=== PATIENT | female | born 1930 | race Caucasian/White ===

== ENCOUNTER 2016-07-16 11:22 | Inpatient (IN) | payer MEDICARE, MEDICAID ==
--- NOTE | 2016-07-16 12:06 | ER Document Report ---
[id number] Information source: Patient, Emergency Med Personnel, Outside Facility Records TRAVEL OUTSIDE OF THE [place] IN LAST 30 DAYS: No - HPI Patient complains to provider of: Shortness of Breath Onset: Other - ~2 weeks ago Onset/Duration: Gradual, Persistent Associated symptoms: Nonproductive cough, Rhinnorhea, Shortness of breath Recently seen / treated by doctor: Yes - [facility] 07/16/2016 (today) <FABIO PIERRE - Last Filed: 08/02/16 21:56> - General Chief Complaint: Shortness Of Breath Stated Complaint: SHORTNESS OF BREATH Notes: Patient is an 86-year-old female sent over from [facility] where she was had a follow-up appointment for her shortness of breath that she has been experiencing for the past 2 weeks. Patient denies it being worse, but states that it is very persistent. Patient states that she has a cough and is also congested. Patient's primary care provider became worried when her O2 saturation dropped as low as 75% while in the doctor's office. EMS states that on arrival they read her O2 saturation at 80%. Patient has a history of COPD, heart attack, coronary artery disease, peripheral vascular disease, and a few other chronic illnesses. (FABIO PIERRE) - Related Data Allergies/Adverse Reactions: Penicillins Allergy (Unknown, Verified 04/12/12 11:10) Home Medications: Current Home Medications Sennosides/Docusate 8.6-50 mg [Senna Plus Tablet] 1 tab PO DAILYP PRN 07/16/16 [ History] Tiotropium Br/Olodaterol HCl [Stiolto Respimat Inhal [place]] 1 puff IH QPM [History] Past Medical History - General Information source: Patient, [facility] Records, Outside Facility Records - Social History Smoking Status: Former Smoker Cigarette use (# per day): No Chew tobacco use (# tins/day): No Frequency of alcohol use: None Drug Abuse: None Family History: Reviewed & Not Pertinent - Past Medical History Cardiac Medical History: Reports: Hx Coronary Artery Disease, Hx Heart Attack - 2010, Hx Hypertension, Hx Peripheral Vascular Disease Pulmonary Medical History: Reports: Hx COPD Renal/ Medical History: Reports: Hx Renal Insufficiency Musculoskeltal Medical History: Reports Hx Arthritis Past Surgical History: Reports: Hx Cardiac Catheterization, Hx Cardiac Surgery - 4 Vessel Bypass 2009, Hx Cholecystectomy. Denies: Hx Hysterectomy - Immunizations Hx Diphtheria, Pertussis, Tetanus Vaccination: Yes Hx Pneumococcal Vaccination: 06/27/08 <FABIO PIERRE - Last Filed: 08/02/16 21:56> Review of Systems - Review of Systems Constitutional: No symptoms reported EENT: See HPI, Nose congestion Cardiovascular: See HPI, Dyspnea Respiratory: See HPI, Cough, Short of breath, Wheezing Gastrointestinal: No symptoms reported Genitourinary: No symptoms reported Female Genitourinary: No symptoms reported Musculoskeletal: No symptoms reported Skin: No symptoms reported Hematologic/Lymphatic: No symptoms reported Neurological/Psychological: No symptoms reported -: Yes All other systems reviewed and negative <FABIO PIERRE - Last Filed: 08/02/16 21:56> Physical Exam - Vital signs Interpretation: Hypoxic - General General appearance: Alert, Other - Cachectic - HEENT Head: Normocephalic, Atraumatic Eyes: Normal Pupils: PERRL - Respiratory Breath sounds: Nonproductive cough, Rhonchi, Wheezing - Cardiovascular Rhythm: Regular Heart sounds: Normal auscultation Murmur: Yes - Abdominal Inspection: Normal Distension: No distension Bowel sounds: Normal Tenderness: Nontender - Back Back: Normal, Nontender - Extremities General upper extremity: Normal inspection, Nontender, Normal color, Normal temperature. No: Edema General lower extremity: Nontender, Normal color. No: Edema, Normal temperature - Cool to touch consistent with peripheral vascular disease. - Neurological Neuro grossly intact: Yes Cognition: Normal Orientation: AAOx4 [place] Coma Scale Eye Opening: Spontaneous [place] Coma Scale Verbal: Oriented [place] Coma Scale Motor: Obeys Commands [place] Coma Scale Total: 15 Speech: Normal - Psychological Associated symptoms: Normal affect, Normal mood - Skin Skin Moisture: Dry Skin Color: Normal <FABIO PIERRE - Last Filed: 08/02/16 21:56> - Vital signs Vitals: Temp 97.7 F 07/16/16 11:45 Course - Laboratory Result Diagrams: 07/16/16 12:05 07/16/16 12:05 - Diagnostic Test Radiology reviewed: Image reviewed - Bibasilar infiltrates, COPD - EKG Interpretation by [place] EKG shows normal: Sinus rhythm, [place], Intervals, QRS Complexes, ST-T Waves Rate: Normal - 67 Rhythm: NSR [place]/QRS: LAHB/LAFB Voltage: Consistant with LVH P Waves: LAE - Consults Dr. Chavez Time consulted: 13:55 Consulted provider: will come to ER <ARMANI GARCIA - Last Filed: 07/16/16 15:22> - Laboratory Result Diagrams: 07/25/16 15:01 07/25/16 15:01 <FABIO PIERRE - Last Filed: 08/02/16 21:56> - Vital Signs Vital signs: Temp Pulse Resp BP Pulse Ox 98.2 F 134 H 20 127/71 H 100 07/27/16 19:18 07/27/16 19:18 07/27/16 19:18 07/27/16 19:18 07/27/16 19:18 - Laboratory Laboratory results interpreted by me: 07/16/16 07/16/16 07/16/16 12:05 12:05 13:35 RBC 3.58 L Hgb 11.0 L Hct 35.4 L MCV 99 H MCHC 31.1 L RDW 14.1 H Seg Neutrophils % 82.5 H Lymphocytes % 7.6 L Sodium 146.7 H BUN 46 H Creatinine 2.22 H Est GFR ( Amer) 25 L Est GFR (Non-Af Amer) 21 L ALT 8 L Creatine Kinase 22 L Albumin 3.3 L Urine Protein >=500 H Urine Blood SMALL H Discharge - Discharge Admitting Provider: Hospitalist Unit Admitted: IMCU <ARMANI GARCIA - Last Filed: 07/16/16 15:22> <FABIO PIERRE - Last Filed: 08/02/16 21:56> - Discharge Clinical Impression: COPD with exacerbation Pneumonia Qualifiers: Pneumonia type: due to methicillin-sensitive Staphylococcus aureus (MSSA) Laterality: bilateral Lung location: lower lobe of lung Qualified Code(s): J15.211 - Pneumonia due to Methicillin susceptible Staphylococcus aureus Scribe Attestation: 07/16/16 15:22 I personally performed the services described in the documentation, reviewed and edited the documentation which was dictated to the scribe in my presence, and it accurately records my words and actions. (ARMANI GARCIA) Scribe Documentation - Scribe Written by Scribe:: Fabio Pierre 07/16/2016 12:02 acting as scribe for :: Emily <FABIO PIERRE - Last Filed: 08/02/16 21:56>
[2016-07-16] MEDS ORDERED: METHYLPREDNISOLONE INJ 125 MG/2 ML SDV IV ONE (12:10)
[2016-07-16] MEDS ORDERED: IPRATROPIUM/ALBUTEROL 0.5-2.5 MG/3 ML AMPUL NEB ONE (12:10)
[2016-07-16 12:35] LABS: ABSOLUTE LYMPHOCYTES (AUTO) 0.7 10^3/uL (0.5-4.7); RED CELL DISTRIBUTION WIDTH 14.1 % (11.5-14.0)
[2016-07-16] MEDS ORDERED: ALBUTEROL SULFATE 0.083% NEB 2.5 MG/3 ML AMPUL NEB ONE (12:41)
[2016-07-16 12:47] LABS: ABSOLUTE MONOCYTES (AUTO) 0.8 10^3/uL (0.1-1.4); ABSOLUTE NEUT (AUTO) 7.5 10^3/uL (1.7-8.2); BASOPHILS % (AUTO) 0.5 % (0-2); EOSINOPHILS % (AUTO) 0.5 % (0-6); HEMATOCRIT 35.4 % (36.0-47.0); HGB HCT DIFFERENCE -2.4; LYMPHOCYTES % (AUTO) 7.6 % (13-45); MEAN CORPUSCULAR HEMOGLOBIN 30.7 pg (27.0-33.4); MEAN CORPUSCULAR HGB CONC 31.1 g/dL (32.0-36.0); MEAN CORPUSCULAR VOLUME 99 fl (80-97); MONOCYTES % (AUTO) 8.9 % (3-13); RED BLOOD COUNT 3.58 10^6/uL (3.72-5.28); SEGMENTED NEUTROPHILS % (AUTO) 82.5 % (42-78); WHITE BLOOD COUNT 9.1 10^3/uL (4.0-10.5)
[2016-07-16 12:55] LABS: ALANINE AMINOTRANSFERASE 8 U/L (9-52); ALBUMIN 3.3 g/dL (3.5-5.0); ALKALINE PHOSPHATASE 112 U/L (38-126); ANION GAP 13 (5-19); ASPARTATE AMINO TRANSFERASE 22 U/L (14-36); BILIRUBIN,TOTAL 0.7 mg/dL (0.2-1.3); BLOOD UREA NITROGEN 46 mg/dL (7-20); CALCIUM 9.7 mg/dL (8.4-10.2); CARBON DIOXIDE 27 mmol/L (22-30); CHLORIDE 107 mmol/L (98-107); CREATINE KINASE 22 U/L (30-135); CREATININE RESULT 2.22 mg/dL (0.52-1.25); GLUCOSE 85 mg/dL (75-110); SODIUM 146.7 mmol/L (137-145); TOTAL PROTEIN 7.9 g/dL (6.3-8.2)
--- NOTE | 2016-07-16 12:58 | EKG REPORT ---
SEVERITY:- ABNORMAL ECG - SINUS RHYTHM PROBABLE LEFT ATRIAL ABNORMALITY LEFT ANTERIOR FASCICULAR BLOCK LVH WITH SECONDARY REPOLARIZATION ABNORMALITY : Confirmed by: Cm Brown MD 16-Jul-2016 12:57:33
[2016-07-16 13:05] LABS: CREATINE KINASE MB 1.41 ng/mL (<4.55)
[2016-07-16 13:15] LABS: TROPONIN I 0.07 ng/mL
[2016-07-16] MEDS ORDERED: CEFTRIAXONE INJ 1000 MG VIAL IM ONE (14:01)
[2016-07-16] MEDS ORDERED: AZITHROMYCIN INJ 500 MG VIAL IV ONE (14:03)
[2016-07-16 14:08] LABS: APPEARANCE,URINE SLIGHTLY-CLOUDY; BILIRUBIN,URINE NEGATIVE (NEGATIVE); GLUCOSE, URINE NEGATIVE (NEGATIVE); KETONES,URINE NEGATIVE (NEGATIVE); LEUKOCYTE ESTERASE,URINE NEGATIVE (NEGATIVE); NITRITE,URINE NEGATIVE (NEGATIVE); PROTEIN,URINE >=500 mg/dL (NEGATIVE); URINE SPECIFIC GRAVITY 1.014; UROBILINOGEN,URINE NEGATIVE mg/dL (<2.0)
[2016-07-16] MEDS ORDERED: CEFTRIAXONE 1 GM/D5W RTU 50 ML IV ONE (14:13)
[2016-07-16] MEDS ORDERED: NORMAL SALINE 1000 ML 1,000 ML IV PRN (15:30)
[2016-07-16] MEDS ORDERED: ACETAMINOPHEN 325 MG TABLET PO PRN (15:30)
[2016-07-16] MEDS ORDERED: LEVALBUTEROL HCL NEB 1.25 MG/3 ML AMPUL NEB PRN (15:30)
[2016-07-16] MEDS ORDERED: PHARMACY COMMUNICATION ORDER MC NR (15:45)
[2016-07-16] MEDS ORDERED: METOPROLOL SUCCINATE 50 MG TAB.SR.24H PO ONE (16:04)
[2016-07-16] MEDS ORDERED: LISINOPRIL 10 MG TABLET PO ONE (16:05)
[2016-07-16] MEDS ORDERED: ISOSORBIDE MONONITRATE 60 MG TAB.ER.24H PO ONE (17:00)
[2016-07-16] MEDS: IPRATROPIUM/ALBUTEROL 0.5-2.5 MG/3 ML AMPUL NEB SCH ×2 (17:08→20:05)
[2016-07-16] MEDS ORDERED: ALBUTEROL SULFATE HFA (90 MCG/PUFF) 8 GM MDI (1 MDI/ER DISP) IH PRN (18:05)
[2016-07-16] MEDS ORDERED: SENNOSIDES/DOCUSATE 8.6-50 MG 1 EACH TABLET PO PRN ×2 (18:05→18:12)
[2016-07-16] MEDS ORDERED: (PENDING PHARMACY ID) (Tiotropium Br/Olodaterol Hcl [Stiolto Respimat Inhal Spray] 1 PUFF) IH SCH (18:15)
--- NOTE | 2016-07-16 18:32 | PDOC H&P ---
History of Present Illness Admission Date/PCP: 07/16/16 14:25 MIRELLA WOO History of Present Illness: VIKTORIA LEE is a 86 year old female who presents from her doctor's office at [facility] where she was had a follow-up appointment for her shortness of breath that she has been experiencing for the past 2 weeks. Patient denies it being worse, but states that it is very persistent. Patient states that she has a cough and is also congested. Patient's primary care provider became worried when her O2 saturation dropped as low as 75% while in the doctor's office. EMS states that on arrival they read her O2 saturation at 80%. Patient reports purulent sputum but denies hemoptysis. She denies fevers admits to occasional chills and feeling cold. She denies any peripheral edema worsening dyspnea on exertion, or PND or orthopnea. She is referred to the hospital service for COPD exacerbation/pneumonia. Past Medical History Cardiac Medical History: Reports: Coronary Artery Disease, Myocardial Infarction - 2010, Hypertension, Peripheral Vascular Disease Pulmonary Medical History: Reports: Chronic Obstructive Pulmonary Disease (COPD) Denies: Asthma, Bronchitis, Pneumonia Musculoskeltal Medical History: Reports: Arthritis Hematology: Reports: Anemia Past Surgical History Past Surgical History: Reports: Cardiac Catheterization, Cholecystectomy, Coronary Artery Bypass Graft, Hysterectomy Social History Smoking Status: Never Smoker Frequency of Alcohol Use: None Hx Recreational Drug Use: No Hx Prescription Drug Abuse: No - Advance Directive Resuscitation Status: Do Not Resuscitate Surrogate healthcare decision maker:: Valentino Lee Family History Family History: CAD, Hypertension, Other - Kidney problems Parental Family History Reviewed: Yes Children Family History Reviewed: Yes Sibling(s) Family History Reviewed.: Yes Medication/Allergy Home Medications: Albuterol Sulfate [Proair HFA] 1 puff IH Q6HP PRN 07/16/16 Aspirin [Aspirin 81 mg Chewable Tablet] 81 mg PO DAILY 07/16/16 Cholecalciferol (Vitamin D3) [Vitamin D3 2000 unit Tablet] 2,000 units PO DAILY 07/16/16 Clonidine [Catapres-Tts 1 (0.1 mg/24 Hr) Transderm Patch] 1 patch TD PARK Ferrous Sulfate [Iron] 325 mg PO Q12 07/16/16 Hydrocodone/Acetaminophen [[place] 10-325 mg Tablet] 1 tab PO Q6HP PRN 07/16/16 Isosorbide Mononitrate [Imdur 60 mg Tablet.er] 60 mg PO DAILY 07/16/16 Lisinopril [Prinivil 40 mg Tablet] 40 mg PO DAILY 07/16/16 Metoprolol Succinate [Toprol Xl 50 mg Tab.sr] 50 mg PO DAILY 07/16/16 Mirtazapine [Remeron 15 mg Tablet] 15 mg PO QHS 07/16/16 Nitroglycerin [Nitrostat 0.4 mg (1/150 Gr) Tabs 25/Bottle] 0.4 mg SL Q5MP PRN Omeprazole 20 mg PO DAILY 07/16/16 Sennosides/Docusate 8.6-50 mg [Senna Plus Tablet] 1 tab PO DAILYP PRN 07/16/16 Tiotropium Br/Olodaterol HCl [Stiolto Respimat Inhal [place]] 1 puff IH QPM Allergies/Adverse Reactions: Penicillins Allergy (Unknown, Verified 04/12/12 11:10) Review of Systems Constitutional: PRESENT: fatigue, weakness. ABSENT: anorexia, chills, fever(s) , headache(s), weight gain, weight loss Eyes: ABSENT: visual disturbances Ears: ABSENT: hearing changes Nose, Mouth, and Throat: ABSENT: sore throat Cardiovascular: PRESENT: dyspnea on exertion. ABSENT: chest pain, edema, orthropnea, palpitations Respiratory: PRESENT: cough, dyspnea, sputum. ABSENT: hemoptysis Gastrointestinal: ABSENT: abdominal pain, constipation, diarrhea, hematemesis, hematochezia, melena, nausea, vomiting Genitourinary: ABSENT: dysuria, hematuria Musculoskeletal: ABSENT: joint swelling Integumentary: ABSENT: rash, wounds Neurological: ABSENT: abnormal gait, abnormal speech, confusion, dizziness, focal weakness, syncope Psychiatric: ABSENT: anxiety, depression, homidical ideation, suicidal ideation Endocrine: ABSENT: cold intolerance, heat intolerance, polydipsia, polyuria Hematologic/Lymphatic: ABSENT: easy bleeding, easy bruising Physical Exam Vital Signs: Temp Pulse Resp BP Pulse Ox 97.7 F 20 193/61 H 100 07/16/16 11:45 07/16/16 14:01 07/16/16 14:01 07/16/16 14:01 General appearance: PRESENT: mild distress, thin, other - Cachectic Head exam: PRESENT: atraumatic, normocephalic, other - Temporal muscle wasting Eye exam: PRESENT: conjunctiva pink, EOMI, PERRLA. ABSENT: conjunctival injection, scleral icterus Ear exam: PRESENT: normal external ear exam Mouth exam: PRESENT: dry mucosa, tongue midline Neck exam: PRESENT: thyromegaly - Slight fullness. ABSENT: carotid bruit, JVD, lymphadenopathy, tracheal deviation Respiratory exam: PRESENT: accessory muscle use, prolonged expiratory phas, rhonchi - Bilateral, tachypnea, wheezes - Bilateral scattered. ABSENT: chest wall tenderness, crackles, rales, stridor Cardiovascular exam: PRESENT: irregular rhythm, +S1, +S2, systolic murmur - 3/6 sm. ABSENT: diastolic murmur, rubs Pulses: PRESENT: normal dorsalis pedis pul Vascular exam: PRESENT: normal capillary refill GI/Abdominal exam: PRESENT: normal bowel sounds, soft. ABSENT: distended, guarding, mass, organolmegaly, rebound, tenderness Rectal exam: PRESENT: deferred Extremities exam: ABSENT: calf tenderness, clubbing, pedal edema Neurological exam: PRESENT: alert, awake, oriented to person, oriented to place , oriented to situation, CN II-XII grossly intact. ABSENT: motor sensory deficit Psychiatric exam: PRESENT: appropriate affect, normal mood. ABSENT: homicidal ideation, suicidal ideation Skin exam: PRESENT: dry, intact, warm. ABSENT: cyanosis, rash Results Impressions: Chest X-Ray 07/16/16 12:02 IMPRESSION: Findings most consistent with mild congestive failure. Underlying pneumonia cannot be excluded. Assessment & Plan - Diagnosis (1) COPD with exacerbation Is this a current diagnosis for this admission?: YesPlan: Patient has received magnesium. She is also received Solu-Medrol. Continue steroids and scheduled the posttreatments (2) Pneumonia Qualifiers: Pneumonia type: due to unspecified organism Laterality: bilateral Lung location: lower lobe of lung Qualified Code(s): J18.9 - Pneumonia, unspecified organism Is this a current diagnosis for this admission?: YesPlan: Patient has history of bronchiectasis. Begin patient on cefepime and Levaquin. Start scheduled nebulized treatments and aggressive pulmonary toileting. Sputum has been obtained in the emergency department. Blood cultures have also been obtained. (3) Acute hypoxemic respiratory failure Is this a current diagnosis for this admission?: YesPlan: Continue oxygen to maintain set greater than 94. (4) Coronary artery disease Qualifiers: Coronary Disease-Associated Artery/Lesion type: unspecified vessel or lesion type [place] vs. transplanted heart: [place] heart Associated angina: without angina Qualified Code(s): I25.10 - Atherosclerotic heart disease of [place] coronary artery without angina pectoris Is this a current diagnosis for this admission?: YesPlan: Patient has had previous CABG. Continue her home medications. (5) CKD (chronic kidney disease) Qualifiers: Chronic kidney disease stage: unspecified stage Qualified Code(s): N18.9 - Chronic kidney disease, unspecified Is this a current diagnosis for this admission?: YesPlan: Renally adjust medications and adjust for weight (6) Peripheral artery disease Is this a current diagnosis for this admission?: Yes (7) Congestive heart failure Qualifiers: Congestive heart failure type: unspecified congestive heart failure type Congestive heart failure chronicity: chronic Qualified Code(s): I50.9 - Heart failure, unspecified Is this a current diagnosis for this admission?: YesPlan: Patient does not appear volume overloaded. More favors pneumonia. (8) DNR (do not resuscitate) Is this a current diagnosis for this admission?: Yes (9) Cachexia Is this a current diagnosis for this admission?: YesPlan: Patient is quite frail and will consult dietary. Will also provide patient with ensure. Consider appetites stimulant - Time Time Spent: 50 to 70 Minutes Medications reviewed and adjusted accordingly: Yes
[2016-07-16] MEDS ORDERED: ALBUTEROL SULFATE HFA (90 MCG/PUFF) 200 PUFF/8.5 GM MDI IH PRN (18:37)
[2016-07-16] MEDS ORDERED: CEFEPIME 2 GM/D5W RTU 50 ML IV SCH (22:00)
[2016-07-16] MEDS: METHYLPREDNISOLONE INJ 40 MG/1 ML SDV IV SCH (23:28)
[2016-07-16] MEDS: HYDRALAZINE HCL 50 MG TABLET PO SCH (23:28)
[2016-07-16] MEDS: MIRTAZAPINE 15 MG TABLET PO SCH (23:29)
[2016-07-16] MEDS: GUAIFENESIN 600 MG TABLET.SA PO SCH (23:29)
[2016-07-16] MEDS: FAMOTIDINE 20 MG TABLET PO SCH (23:30)
[2016-07-16] MEDS: FERROUS SULFATE 325 MG TABLET PO SCH (23:30)
[2016-07-17] MEDS ORDERED: CEFEPIME 2 GM/D5W RTU 2 GM/50 ML RTUPB IV ONE (00:48)
[2016-07-17] MEDS ORDERED: INFLUENZA ADLT QUAD (36MOS+) 2016-17 VAC 0.5 ML SYR IM PRN (03:53)
[2016-07-17 04:58] LABS: HEMATOCRIT 30.8 % (36.0-47.0); HEMOGLOBIN 9.4 g/dL (12.0-15.5); HGB HCT DIFFERENCE -2.6; MEAN CORPUSCULAR HEMOGLOBIN 30.7 pg (27.0-33.4); MEAN CORPUSCULAR HGB CONC 30.5 g/dL (32.0-36.0); MEAN CORPUSCULAR VOLUME 100 fl (80-97); RED BLOOD COUNT 3.07 10^6/uL (3.72-5.28); RED CELL DISTRIBUTION WIDTH 14.4 % (11.5-14.0); WHITE BLOOD COUNT 4.8 10^3/uL (4.0-10.5)
[2016-07-17 05:12] LABS: ANION GAP 11 (5-19); BLOOD UREA NITROGEN 46 mg/dL (7-20); CALCIUM 9.5 mg/dL (8.4-10.2); CARBON DIOXIDE 26 mmol/L (22-30); CHLORIDE 108 mmol/L (98-107); CREATININE RESULT 2.08 mg/dL (0.52-1.25); GLUCOSE 151 mg/dL (75-110); MAGNESIUM 1.9 mg/dL (1.6-2.3); POTASSIUM 5.6 mmol/L (3.6-5.0); SODIUM 144.9 mmol/L (137-145)
[2016-07-17 05:21] LABS: BASOPHILS % (MANUAL) 0 % (0-2); EOSINOPHILS % (MANUAL) 0 % (0-6); LYMPHOCYTES % (MANUAL) 3 % (13-45); TOTAL CELLS COUNTED 100; TOXIC GRANULATION SLIGHT
[2016-07-17 05:22] LABS: ANISOCYTOSIS SLIGHT
[2016-07-17] MEDS: METHYLPREDNISOLONE INJ 40 MG/1 ML SDV IV SCH ×3 (07:01→22:56)
[2016-07-17] MEDS ORDERED: BISACODYL 10 MG SUPP.RECT PR PRN (07:31)
[2016-07-17] MEDS: LANSOPRAZOLE 15 MG TAB.RAP.DR PO SCH (07:40)
[2016-07-17] MEDS: IPRATROPIUM/ALBUTEROL 0.5-2.5 MG/3 ML AMPUL NEB SCH ×4 (08:07→20:16)
[2016-07-17] MEDS: DEXTROSE IV SCH (09:13)
[2016-07-17] MEDS: LEVOFLOXACIN IV SCH (09:13)
[2016-07-17] MEDS: CHOLECALCIFEROL (D3) 1,000 UNIT TABLET PO SCH (09:14)
[2016-07-17] MEDS: ASPIRIN 81 MG TABLET, CHEWABLE PO SCH (09:14)
[2016-07-17] MEDS: FERROUS SULFATE 325 MG TABLET PO SCH ×2 (09:14→22:56)
[2016-07-17] MEDS: GUAIFENESIN 600 MG TABLET.SA PO SCH ×2 (09:15→22:55)
[2016-07-17] MEDS: ISOSORBIDE MONONITRATE 60 MG TAB.ER.24H PO SCH (09:15)
[2016-07-17] MEDS: METOPROLOL SUCCINATE 50 MG TAB.SR.24H PO SCH (09:15)
[2016-07-17] MEDS: FAMOTIDINE 20 MG TABLET PO SCH ×2 (09:16→22:55)
[2016-07-17] MEDS: DOCUSATE SODIUM 100 MG CAPSULE PO SCH (09:16)
[2016-07-17] MEDS: HYDRALAZINE HCL 50 MG TABLET PO SCH ×2 (09:16→22:58)
[2016-07-17] MEDS: LISINOPRIL 10 MG TABLET PO SCH (09:17)
[2016-07-17] MEDS ORDERED: (PENDING PHARMACY ID) (Cholecalciferol (Vitamin D3) [Vitamin D3 2000 Unit Tablet] 2,000 UN PO SCH (10:00)
[2016-07-17] MEDS: CEFEPIME HCL 2 GM in DEXTROSE 5%-WATER 50 ML IV SCH ×2 (10:36→22:55)
--- NOTE | 2016-07-17 13:35 | PDOC PROGRESS REPORT ---
Subjective Progress Note for:: 07/17/16 Subjective:: Patient reports she feels she is breathing slightly better. She appears to be quite frail. Patient denies chest pain, abdominal pain, nausea, vomiting, fevers , chills, diarrhea, constipation, headache. Physical Exam Vital Signs: Temp Pulse Resp BP Pulse Ox 97.5 F 74 16 122/58 L 97 07/17/16 03:21 07/17/16 06:33 07/17/16 03:21 07/17/16 03:21 07/17/16 03:21 Intake & Output 07/16/16 07/17/16 07/18/16 06:59 06:59 06:59 Intake Total 10 Balance 10 Weight 28.9 kg Exam: General: Cachectic, frail, elderly Awake alert and answers questions appropriately, no acute respiratory distress HEENT: AT/NC, PERRL, oropharynx is moist, pink, no scleral icterus, no conjunctival injection Neck: No JVD, trachea midline Chest: Bilateral rhonchi, no wheezes CV: Irregular rate and rhythm, normal S1 and S2, no rub or gallop Abdomen: Soft, nontender to palpation, nondistended, active bowel sounds; no rebound, rigidity, or guarding Extremities: No cyanosis, clubbing or edema Neuro: Cranial nerves II through XII are grossly intact without focal deficits Psych: Normal mood and affect Results Laboratory Results: 07/17/16 04:30 07/17/16 04:30 07/17/16 07/17/16 04:30 04:30 WBC 4.8 RBC 3.07 L Hgb 9.4 L Hct 30.8 L MCV 100 H MCH 30.7 MCHC 30.5 L RDW 14.4 H Plt Count 198 Seg Neutrophils % Not Reportable Lymphocytes % Not Reportable Monocytes % Not Reportable Eosinophils % Not Reportable Basophils % Not Reportable Absolute Neutrophils Not Reportable Absolute Lymphocytes Not Reportable Absolute Monocytes Not Reportable Absolute Eosinophils Not Reportable Absolute Basophils Not Reportable Sodium 144.9 Potassium 5.6 H Chloride 108 H Carbon Dioxide 26 Anion Gap 11 BUN 46 H Creatinine 2.08 H Est GFR ( Amer) 27 L Est GFR (Non-Af Amer) 23 L Glucose 151 H Calcium 9.5 Magnesium 1.9 Impressions: Chest X-Ray 07/16/16 12:02 IMPRESSION: Findings most consistent with mild congestive failure. Underlying pneumonia cannot be excluded. Assessment & Plan - Diagnosis (1) COPD with exacerbation Is this a current diagnosis for this admission?: YesPlan: Continue steroids and scheduled nebulized treatments (2) Pneumonia Qualifiers: Pneumonia type: due to unspecified organism Laterality: bilateral Lung location: lower lobe of lung Qualified Code(s): J18.9 - Pneumonia, unspecified organism Is this a current diagnosis for this admission?: YesPlan: Patient has history of bronchiectasis. On cefepime day #2 and Levaquin day #2. Scheduled nebulized treatments and aggressive pulmonary toileting. Blood and sputum pending. (3) Acute hypoxemic respiratory failure Is this a current diagnosis for this admission?: YesPlan: Continue oxygen to maintain set greater than 94. (4) Coronary artery disease Qualifiers: Coronary Disease-Associated Artery/Lesion type: unspecified vessel or lesion type [place] vs. transplanted heart: [place] heart Associated angina: without angina Qualified Code(s): I25.10 - Atherosclerotic heart disease of [place] coronary artery without angina pectoris Is this a current diagnosis for this admission?: Yes (5) CKD (chronic kidney disease) Qualifiers: Chronic kidney disease stage: unspecified stage Qualified Code(s): N18.9 - Chronic kidney disease, unspecified Is this a current diagnosis for this admission?: Yes (6) Peripheral artery disease Is this a current diagnosis for this admission?: Yes (7) Congestive heart failure Qualifiers: Congestive heart failure type: unspecified congestive heart failure type Congestive heart failure chronicity: chronic Qualified Code(s): I50.9 - Heart failure, unspecified Is this a current diagnosis for this admission?: Yes (8) DNR (do not resuscitate) Is this a current diagnosis for this admission?: Yes (9) Cachexia Is this a current diagnosis for this admission?: YesPlan: Patient is quite frail and will consult dietary. Patient receiving ensure and ice cream as desired. Add Megace - Time Time Spent with patient: 25-34 minutes Medications reviewed and adjusted accordingly: Yes
[2016-07-17] MEDS ORDERED: (PENDING PHARMACY ID) (Tiotropium Br/Olodaterol Hcl [Stiolto Respimat Inhal Spray] 1 PUFF) IH SCH (18:00)
[2016-07-17] MEDS: MIRTAZAPINE 15 MG TABLET PO SCH (22:55)
[2016-07-18 05:08] LABS: HEMATOCRIT 32.2 % (36.0-47.0); HEMOGLOBIN 10.1 g/dL (12.0-15.5); HGB HCT DIFFERENCE -1.9; MEAN CORPUSCULAR HGB CONC 31.3 g/dL (32.0-36.0); MEAN CORPUSCULAR VOLUME 99 fl (80-97); RED BLOOD COUNT 3.25 10^6/uL (3.72-5.28); RED CELL DISTRIBUTION WIDTH 14.3 % (11.5-14.0)
[2016-07-18] MEDS: METHYLPREDNISOLONE INJ 40 MG/1 ML SDV IV SCH (05:13)
[2016-07-18 05:28] LABS: ANION GAP 14 (5-19); BLOOD UREA NITROGEN 61 mg/dL (7-20); CALCIUM 9.8 mg/dL (8.4-10.2); CARBON DIOXIDE 22 mmol/L (22-30); CHLORIDE 107 mmol/L (98-107); CREATININE RESULT 2.14 mg/dL (0.52-1.25); GLUCOSE 100 mg/dL (75-110); POTASSIUM 5.5 mmol/L (3.6-5.0); SODIUM 143.2 mmol/L (137-145)
[2016-07-18 05:34] LABS: WHITE BLOOD COUNT 12.5 10^3/uL (4.0-10.5)
[2016-07-18 05:39] LABS: BASOPHILS % (MANUAL) 0 % (0-2); EOSINOPHILS % (MANUAL) 0 % (0-6); LYMPHOCYTES % (MANUAL) 2 % (13-45); TOTAL CELLS COUNTED 100
[2016-07-18 05:40] LABS: ANISOCYTOSIS SLIGHT; TOXIC GRANULATION 1+
[2016-07-18] MEDS: LANSOPRAZOLE 15 MG TAB.RAP.DR PO SCH (07:45)
[2016-07-18] MEDS: IPRATROPIUM/ALBUTEROL 0.5-2.5 MG/3 ML AMPUL NEB SCH ×4 (08:19→20:14)
[2016-07-18] MEDS: MEGESTROL ACETATE SUSP 400 MG/10 ML UDCUP PO SCH (09:33)
[2016-07-18] MEDS: FERROUS SULFATE 325 MG TABLET PO SCH ×2 (09:34→22:01)
[2016-07-18] MEDS: DOCUSATE SODIUM 100 MG CAPSULE PO SCH (09:34)
[2016-07-18] MEDS: GUAIFENESIN 600 MG TABLET.SA PO SCH ×2 (09:34→22:01)
[2016-07-18] MEDS: CHOLECALCIFEROL (D3) 1,000 UNIT TABLET PO SCH (09:34)
[2016-07-18] MEDS: ASPIRIN 81 MG TABLET, CHEWABLE PO SCH (09:34)
[2016-07-18] MEDS: FAMOTIDINE 20 MG TABLET PO SCH ×2 (09:34→22:01)
[2016-07-18] MEDS: METOPROLOL SUCCINATE 50 MG TAB.SR.24H PO SCH (09:35)
[2016-07-18] MEDS: DEXTROSE IV SCH (09:39)
[2016-07-18] MEDS: CEFEPIME HCL 2 GM in DEXTROSE 5%-WATER 50 ML IV SCH (09:39)
[2016-07-18] MEDS: LEVOFLOXACIN IV SCH (09:39)
[2016-07-18] MEDS: HYDRALAZINE HCL 50 MG TABLET PO SCH ×2 (09:40→22:00)
[2016-07-18] MEDS: LISINOPRIL 10 MG TABLET PO SCH (09:40)
[2016-07-18] MEDS: ISOSORBIDE MONONITRATE 60 MG TAB.ER.24H PO SCH (09:40)
[2016-07-18] MEDS ORDERED: CLONIDINE 0.1 MG/24 HR PATCH.TDWK TD SCH ×3 (10:00→18:05)
--- NOTE | 2016-07-18 16:52 | PDOC PROGRESS REPORT ---
Subjective Progress Note for:: 07/18/16 Subjective:: Patient had overnight episode Of confusion. She is resting comfortably today. She sleeps with her head on her chest according to her son. Physical Exam Vital Signs: Temp Pulse Resp BP Pulse Ox 97.3 F 76 20 141/75 H 99 07/18/16 04:00 07/18/16 06:37 07/18/16 04:00 07/18/16 04:00 07/18/16 04:00 Intake & Output 07/17/16 07/18/16 07/19/16 06:59 06:59 06:59 Intake Total 90 867 Output Total 550 Balance 90 317 Weight 28.9 kg 34 kg Exam: General: Cachectic, frail, elderly sleeping with head on chest, no acute respiratory distress HEENT: AT/NC, PERRL, oropharynx is moist, pink, no scleral icterus, no conjunctival injection Neck: No JVD, trachea midline Chest: Clear to auscultation bilaterally CV: Irregular rate and rhythm, normal S1 and S2, no rub or gallop Abdomen: Soft, nontender to palpation, nondistended, active bowel sounds; no rebound, rigidity, or guarding Extremities: No cyanosis, clubbing or edema Results Laboratory Results: 07/18/16 04:45 07/18/16 04:45 07/17/16 07/17/16 07/18/16 04:30 04:30 04:45 WBC 12.5 H D RBC 3.25 L Hgb 10.1 L Hct 32.2 L MCV 99 H MCH 31.0 MCHC 31.3 L RDW 14.3 H Plt Count 200 Seg Neutrophils % Not Reportable Lymphocytes % Not Reportable Monocytes % Not Reportable Eosinophils % Not Reportable Basophils % Not Reportable Absolute Neutrophils Not Reportable Absolute Lymphocytes Not Reportable Absolute Monocytes Not Reportable Absolute Eosinophils Not Reportable Absolute Basophils Not Reportable Retic Count (auto) 1.28 Absolute Retic 0.039 Sodium Potassium Chloride Carbon Dioxide Anion Gap BUN Creatinine Est GFR ( Amer) Est GFR (Non-Af Amer) Glucose Calcium Iron 20 L TIBC 177 L % Saturation 11 Ferritin 312.00 H Vitamin B12 703.0 Folate 11.80 07/18/16 04:45 WBC RBC Hgb Hct MCV MCH MCHC RDW Plt Count Seg Neutrophils % Lymphocytes % Monocytes % Eosinophils % Basophils % Absolute Neutrophils Absolute Lymphocytes Absolute Monocytes Absolute Eosinophils Absolute Basophils Retic Count (auto) Absolute Retic Sodium 143.2 Potassium 5.5 H Chloride 107 Carbon Dioxide 22 Anion Gap 14 BUN 61 H Creatinine 2.14 H Est GFR ( Amer) 26 L Est GFR (Non-Af Amer) 22 L Glucose 100 Calcium 9.8 Iron TIBC % Saturation Ferritin Vitamin B12 Folate Impressions: Chest X-Ray 07/16/16 12:02 IMPRESSION: Findings most consistent with mild congestive failure. Underlying pneumonia cannot be excluded. Assessment & Plan - Diagnosis (1) COPD with exacerbation Is this a current diagnosis for this admission?: YesPlan: Transition to oral steroids and scheduled nebulized treatments (2) Pneumonia Qualifiers: Pneumonia type: due to methicillin-sensitive Staphylococcus aureus (MSSA) Laterality: bilateral Lung location: lower lobe of lung Qualified Code(s): J15.211 - Pneumonia due to Methicillin susceptible Staphylococcus aureus Is this a current diagnosis for this admission?: YesPlan: Patient with MSSA. Will begin patient on azithromycin. Clinically improved. (3) Acute hypoxemic respiratory failure Is this a current diagnosis for this admission?: YesPlan: Continue oxygen to maintain set greater than 94. (4) Coronary artery disease Qualifiers: Coronary Disease-Associated Artery/Lesion type: unspecified vessel or lesion type [place] vs. transplanted heart: [place] heart Associated angina: without angina Qualified Code(s): I25.10 - Atherosclerotic heart disease of [place] coronary artery without angina pectoris Is this a current diagnosis for this admission?: Yes (5) CKD (chronic kidney disease) Qualifiers: Chronic kidney disease stage: stage 4 (severe) Qualified Code(s): N18.4 - Chronic kidney disease, stage 4 (severe) Is this a current diagnosis for this admission?: YesPlan: Renally adjust medications and adjust for weight (6) Peripheral artery disease Is this a current diagnosis for this admission?: Yes (7) Congestive heart failure Qualifiers: Congestive heart failure type: unspecified congestive heart failure type Congestive heart failure chronicity: chronic Qualified Code(s): I50.9 - Heart failure, unspecified Is this a current diagnosis for this admission?: Yes (8) DNR (do not resuscitate) Is this a current diagnosis for this admission?: Yes (9) Cachexia Is this a current diagnosis for this admission?: YesPlan: Patient is quite frail and appreciate dietary. Patient receiving ensure and ice cream as desired. Now on Megace - Time Time Spent with patient: 15-24 minutes Medications reviewed and adjusted accordingly: Yes Anticipated discharge: Home Within: within 48 hours
[2016-07-18] MEDS ORDERED: AZITHROMYCIN 250 MG TABLET PO ONE (17:00)
[2016-07-18] MEDS ORDERED: PHARMACY COMMUNICATION ORDER MC NR (17:00)
[2016-07-18] MEDS: PREDNISONE 10 MG TABLET PO SCH (17:27)
[2016-07-18] MEDS: MIRTAZAPINE 15 MG TABLET PO SCH (22:01)
[2016-07-19 06:05] LABS: HEMOGLOBIN 10.3 g/dL (12.0-15.5); HGB HCT DIFFERENCE -2.1; MEAN CORPUSCULAR HEMOGLOBIN 30.5 pg (27.0-33.4); MEAN CORPUSCULAR HGB CONC 31.3 g/dL (32.0-36.0); MEAN CORPUSCULAR VOLUME 97 fl (80-97); RED BLOOD COUNT 3.39 10^6/uL (3.72-5.28); WHITE BLOOD COUNT 13.6 10^3/uL (4.0-10.5)
[2016-07-19 06:17] LABS: ANION GAP 13 (5-19); BLOOD UREA NITROGEN 67 mg/dL (7-20); CARBON DIOXIDE 22 mmol/L (22-30); CHLORIDE 111 mmol/L (98-107); GLUCOSE 91 mg/dL (75-110); POTASSIUM 5.2 mmol/L (3.6-5.0); SODIUM 145.8 mmol/L (137-145)
[2016-07-19 06:30] LABS: BASOPHILS % (MANUAL) 0 % (0-2); EOSINOPHILS % (MANUAL) 0 % (0-6); LYMPHOCYTES % (MANUAL) 3 % (13-45); TOTAL CELLS COUNTED 100
[2016-07-19 06:35] LABS: ANISOCYTOSIS SLIGHT; TOXIC GRANULATION SLIGHT
[2016-07-19 06:36] LABS: ACANTHOCYTES SLIGHT; TEAR DROP CELLS 1+
[2016-07-19 06:51] LABS: ARTERIAL BLOOD BASE EXCESS -2.2 mmol/L; ARTERIAL BLOOD O2 SATURATION 94.6 % (94-98)
[2016-07-19] MEDS ORDERED: NORMAL SALINE 1000 ML 1,000 ML IV PRN (07:33)
[2016-07-19] MEDS: IPRATROPIUM/ALBUTEROL 0.5-2.5 MG/3 ML AMPUL NEB SCH ×4 (08:22→20:20)
[2016-07-19] MEDS: LISINOPRIL 10 MG TABLET PO SCH (09:50)
[2016-07-19] MEDS: ASPIRIN 81 MG TABLET, CHEWABLE PO SCH (09:50)
[2016-07-19] MEDS: ISOSORBIDE MONONITRATE 60 MG TAB.ER.24H PO SCH (09:50)
[2016-07-19] MEDS: CHOLECALCIFEROL (D3) 1,000 UNIT TABLET PO SCH (09:50)
[2016-07-19] MEDS: MEGESTROL ACETATE SUSP 400 MG/10 ML UDCUP PO SCH (09:50)
[2016-07-19] MEDS: LANSOPRAZOLE 15 MG TAB.RAP.DR PO SCH (09:50)
[2016-07-19] MEDS: PREDNISONE 10 MG TABLET PO SCH ×2 (09:50→17:08)
[2016-07-19] MEDS: GUAIFENESIN 600 MG TABLET.SA PO SCH ×2 (09:50→22:56)
[2016-07-19] MEDS: DOCUSATE SODIUM 100 MG CAPSULE PO SCH (09:50)
[2016-07-19] MEDS: FERROUS SULFATE 325 MG TABLET PO SCH ×2 (09:50→22:56)
[2016-07-19] MEDS: METOPROLOL SUCCINATE 50 MG TAB.SR.24H PO SCH (09:50)
[2016-07-19] MEDS: HYDRALAZINE HCL 50 MG TABLET PO SCH ×2 (09:50→22:56)
[2016-07-19] MEDS: FAMOTIDINE 20 MG TABLET PO SCH ×2 (09:50→22:56)
[2016-07-19] MEDS ORDERED: AZITHROMYCIN 250 MG TABLET PO SCH (10:00)
[2016-07-19] MEDS ORDERED: DEXTROSE 5%-NORMAL SALINE 1,000 ML IV PRN (13:05)
[2016-07-19] MEDS ORDERED: DEXTROSE 5%-1/2 NORMAL SALINE 1,000 ML IV PRN (13:07)
--- NOTE | 2016-07-19 13:33 | PDOC PROGRESS REPORT ---
Subjective Progress Note for:: 07/19/16 Subjective:: Over the course of the evening, patient has become increasingly lethargic and unarousable. ABG obtained overnight was compensated. Patient currently arousable to anything but noxious stimuli. Patient family present at bedside and discussion had with them. Physical Exam Vital Signs: Temp Pulse Resp BP Pulse Ox 97.5 F 84 16 105/84 97 07/19/16 11:37 07/19/16 12:46 07/19/16 12:46 07/19/16 11:37 07/19/16 11:37 Intake & Output 07/18/16 07/19/16 07/20/16 06:59 06:59 06:59 Intake Total 867 393 0 Output Total 550 Balance 317 393 0 Weight 34 kg 34.9 kg Exam: General: Cachectic, frail, elderly, obtunded, no acute respiratory distress HEENT: AT/NC, PERRL, oropharynx is moist, pink, no scleral icterus, no conjunctival injection Neck: No JVD, trachea midline Chest: Clear to auscultation bilaterally, without wheezes, rhonchi, or rales CV: Irregular rate and rhythm, normal S1 and S2, no rub or gallop Abdomen: Soft, nontender to palpation, nondistended, active bowel sounds; no rebound, rigidity, or guarding Extremities: No cyanosis, clubbing or edema Neuro: Obtunded Results Laboratory Results: 07/19/16 04:59 07/19/16 04:59 07/19/16 07/19/16 07/19/16 04:59 04:59 06:45 WBC 13.6 H RBC 3.39 L Hgb 10.3 L Hct 33.0 L MCV 97 MCH 30.5 MCHC 31.3 L RDW 14.0 Plt Count 166 Seg Neutrophils % Not Reportable Lymphocytes % Not Reportable Monocytes % Not Reportable Eosinophils % Not Reportable Basophils % Not Reportable Absolute Neutrophils Not Reportable Absolute Lymphocytes Not Reportable Absolute Monocytes Not Reportable Absolute Eosinophils Not Reportable Absolute Basophils Not Reportable Carbonic Acid 1.12 HCO3/H2CO3 Ratio 19:1 ABG pH 7.40 ABG pCO2 37.3 ABG pO2 72.3 L ABG HCO3 22.3 ABG O2 Saturation 94.6 ABG Base Excess -2.2 FiO2 ROOM AIR Sodium 145.8 H Potassium 5.2 H Chloride 111 H Carbon Dioxide 22 Anion Gap 13 BUN 67 H Creatinine 2.20 H Est GFR ( Amer) 26 L Est GFR (Non-Af Amer) 21 L Glucose 91 Calcium 10.0 Assessment & Plan - Diagnosis (1) COPD with exacerbation Is this a current diagnosis for this admission?: YesPlan: Due to patient's lethargy, will resume Solu-Medrol. Scheduled nebulized treatments (2) Pneumonia Qualifiers: Pneumonia type: due to methicillin-sensitive Staphylococcus aureus (MSSA) Laterality: bilateral Lung location: lower lobe of lung Qualified Code(s): J15.211 - Pneumonia due to Methicillin susceptible Staphylococcus aureus Is this a current diagnosis for this admission?: YesPlan: Patient with MSSA. Will place patient on Rocephin due to her current lethargy. At this time, due to patient extreme cachexia and underlying medical illnesses, feel that patient will likely succumb to her illness despite any intervention. Have discussed with family and offered him comfort measures. (3) Acute hypoxemic respiratory failure Is this a current diagnosis for this admission?: YesPlan: Continue oxygen to maintain set greater than 94. (4) Coronary artery disease Qualifiers: Coronary Disease-Associated Artery/Lesion type: unspecified vessel or lesion type [place] vs. transplanted heart: torres martinez heart Associated angina: without angina Qualified Code(s): I25.10 - Atherosclerotic heart disease of torres martinez coronary artery without angina pectoris Is this a current diagnosis for this admission?: YesPlan: Patient has had previous CABG. Continue her home medications. (5) CKD (chronic kidney disease) Qualifiers: Chronic kidney disease stage: stage 4 (severe) Qualified Code(s): N18.4 - Chronic kidney disease, stage 4 (severe) Is this a current diagnosis for this admission?: YesPlan: Renally adjust medications and adjust for weight. Patient with mild hyperkalemia likely secondary to her renal failure and pulmonic process. (6) Peripheral artery disease Is this a current diagnosis for this admission?: Yes (7) Congestive heart failure Qualifiers: Congestive heart failure type: unspecified congestive heart failure type Congestive heart failure chronicity: chronic Qualified Code(s): I50.9 - Heart failure, unspecified Is this a current diagnosis for this admission?: Yes (8) Cachexia Is this a current diagnosis for this admission?: YesPlan: Patient family has declined NG or feeding tube. Interventions currently include dietary consult, Megace, and dietary supplementation with ensure. (9) DNR (do not resuscitate) Is this a current diagnosis for this admission?: Yes - Time Time Spent with patient: 35 or more minutes Medications reviewed and adjusted accordingly: Yes
[2016-07-19] MEDS ORDERED: CEFTRIAXONE 1 GM/D5W RTU 1 GM/50 ML RTUPB IV ONE (14:00)
[2016-07-19] MEDS: HYDRALAZINE HCL INJ/PF 20 MG/1 ML SDV IV PRN (16:32)
[2016-07-19] MEDS ORDERED: METOPROLOL TARTRATE PF/INJ 5 MG/5 ML SDV IV ONE ×2 (17:19→18:00)
[2016-07-19] MEDS: METOPROLOL TARTRATE PF/INJ 5 MG/5 ML SDV IV SCH (23:40)
[2016-07-20] MEDS: METOPROLOL TARTRATE PF/INJ 5 MG/5 ML SDV IV SCH ×4 (05:31→23:59)
[2016-07-20] MEDS: IPRATROPIUM/ALBUTEROL 0.5-2.5 MG/3 ML AMPUL NEB SCH (08:12)
[2016-07-20] MEDS: LANSOPRAZOLE 15 MG TAB.RAP.DR PO SCH (08:12)
[2016-07-20] MEDS: HYDRALAZINE HCL INJ/PF 20 MG/1 ML SDV IV PRN (08:12)
[2016-07-20 08:45] LABS: MEAN CORPUSCULAR VOLUME 96 fl (80-97)
[2016-07-20 08:49] LABS: HEMATOCRIT 41.7 % (36.0-47.0); HGB HCT DIFFERENCE -2.4; MEAN CORPUSCULAR HGB CONC 31.3 g/dL (32.0-36.0); RED BLOOD COUNT 4.35 10^6/uL (3.72-5.28); RED CELL DISTRIBUTION WIDTH 14.4 % (11.5-14.0); WHITE BLOOD COUNT 17.3 10^3/uL (4.0-10.5)
[2016-07-20 08:51] LABS: HEMOGLOBIN 13.1 g/dL (12.0-15.5)
[2016-07-20 09:00] LABS: ANION GAP 17 (5-19); BLOOD UREA NITROGEN 57 mg/dL (7-20); CALCIUM 10.5 mg/dL (8.4-10.2); CARBON DIOXIDE 21 mmol/L (22-30); CHLORIDE 108 mmol/L (98-107); CREATININE RESULT 2.05 mg/dL (0.52-1.25); GLUCOSE 77 mg/dL (75-110); POTASSIUM 4.4 mmol/L (3.6-5.0); SODIUM 145.8 mmol/L (137-145)
[2016-07-20] MEDS ORDERED: DILTIAZEM HCL INJ 25 MG/5 ML VIAL ONE (09:07)
[2016-07-20] MEDS ORDERED: DILTIAZEM HCL INJ 25 MG/5 ML VIAL IV ONE (09:15)
[2016-07-20] MEDS: FAMOTIDINE 20 MG TABLET PO SCH (09:17)
[2016-07-20] MEDS: MEGESTROL ACETATE SUSP 400 MG/10 ML UDCUP PO SCH (09:17)
[2016-07-20] MEDS: CHOLECALCIFEROL (D3) 1,000 UNIT TABLET PO SCH (09:17)
[2016-07-20] MEDS: DOCUSATE SODIUM 100 MG CAPSULE PO SCH (09:17)
[2016-07-20] MEDS: ISOSORBIDE MONONITRATE 60 MG TAB.ER.24H PO SCH (09:17)
[2016-07-20] MEDS: ASPIRIN 81 MG TABLET, CHEWABLE PO SCH (09:17)
[2016-07-20] MEDS: PREDNISONE 10 MG TABLET PO SCH (09:17)
[2016-07-20] MEDS: HYDRALAZINE HCL 50 MG TABLET PO SCH (09:17)
[2016-07-20] MEDS: FERROUS SULFATE 325 MG TABLET PO SCH (09:17)
[2016-07-20] MEDS: METOPROLOL SUCCINATE 50 MG TAB.SR.24H PO SCH (09:17)
[2016-07-20] MEDS: GUAIFENESIN 600 MG TABLET.SA PO SCH (09:17)
[2016-07-20] MEDS: LISINOPRIL 10 MG TABLET PO SCH (09:17)
[2016-07-20] MEDS ORDERED: DILTIAZEM HCL/D5W 125 ML IV PRN (09:22)
[2016-07-20 10:03] LABS: BASOPHILS % (MANUAL) 0 % (0-2); EOSINOPHILS % (MANUAL) 1 % (0-6); LYMPHOCYTES % (MANUAL) 1 % (13-45); RBC MORPHOLOGY COMMENT NORMO-CYTIC/CHROMIC; TOTAL CELLS COUNTED 100; TOXIC VACUOLATION PRESENT
[2016-07-20] MEDS ORDERED: IPRATROPIUM/ALBUTEROL 0.5-2.5 MG/3 ML AMPUL NEB PRN (10:56)
--- NOTE | 2016-07-20 11:46 | EKG REPORT ---
SEVERITY:- ABNORMAL ECG - SINUS TACHYCARDIA WITH IRREGULAR RATE 95-160 LEFT ANTERIOR FASCICULAR BLOCK LVH WITH SECONDARY REPOLARIZATION ABNORMALITY ANTERIOR INFARCT, AGE INDETERMINATE LATERAL ST DEPRESSION.CANNOT EXCLUDE ISCHEMIA : Confirmed by: Bettina Short MD 20-Jul-2016 11:45:37
[2016-07-20] MEDS ORDERED: NITROGLYCERIN 10 MG (0.4 MG/HR) PATCH.TD24 TD ONE (12:00)
[2016-07-20] MEDS ORDERED: METHYLPREDNISOLONE INJ 40 MG/1 ML SDV IV ONE (12:00)
[2016-07-20] MEDS ORDERED: DILTIAZEM HCL INJ 25 MG/5 ML VIAL IV SCH (12:00)
[2016-07-20] MEDS: CEFTRIAXONE 1 GM/D5W RTU 1 GM/50 ML RTUPB IV SCH (12:26)
[2016-07-20] MEDS: DEXTROSE 5%-1/2 NORMAL SALINE 1,000 ML IV PRN ×2 (12:28→22:29)
--- NOTE | 2016-07-20 13:40 | PDOC PROGRESS REPORT ---
Subjective Subjective:: From H&P:VIKTORIA LEE is a 86 year old female who presents from her doctor's office at [facility] where she was had a follow-up appointment for her shortness of breath that she has been experiencing for the past 2 weeks. Patient denies it being worse, but states that it is very persistent. Patient states that she has a cough and is also congested. Patient's primary care provider became worried when her O2 saturation dropped as low as 75% while in the doctor's office. EMS states that on arrival they read her O2 saturation at 80%. Patient reports purulent sputum but denies hemoptysis. She denies fevers admits to occasional chills and feeling cold. She denies any peripheral edema worsening dyspnea on exertion, or PND or orthopnea. She is referred to the hospital service for COPD exacerbation/pneumonia. Patient's condition is continued to deteriorate. She is no longer verbal responsive. She will follow commands and is been the case for the last 3 days according to the nursing staff. He was not this way on presentation. She is now slipped into atrial fibrillation with a rapid ventricular response rate in the 160s sustained until IV Cardizem given. Patient's oral intake remains minimal and worsened due to onset of encephalopathy. I met with the son at the bedside and after discussing her case with these new findings, he has decided not to continue pursuing invasive investigations or treatments. He is willing to continue current level of care but if her condition were to deteriorate he wishes to focus only on her comfort and allow the condition harnessed medical course. ROS: She is obtunded and unable to participate. Physical Exam Vital Signs: Temp Pulse Resp BP Pulse Ox 97.3 F 78 24 H 149/70 H 99 07/20/16 12:10 07/20/16 12:10 07/20/16 12:10 07/20/16 12:10 07/20/16 12:10 Intake & Output 07/19/16 07/20/16 07/21/16 06:59 06:59 06:59 Intake Total 393 338 Balance 393 338 Weight 34.9 kg 32.6 kg General appearance: PRESENT: no acute distress, disheveled, other - Cachectic Head exam: PRESENT: atraumatic, normocephalic Eye exam: ABSENT: EOMI - Resist my attempts to open her eyes but when I do the eyes deviated to the right Mouth exam: PRESENT: dry mucosa, tongue midline Teeth exam: PRESENT: poor dentation Neck exam: ABSENT: carotid bruit, JVD Respiratory exam: PRESENT: accessory muscle use - Abdominal muscles, crackles - Throughout. ABSENT: wheezes Cardiovascular exam: PRESENT: irregular rhythm - Appears to be atrial fibrillation on 12-lead EKG, tachycardia. ABSENT: systolic murmur - Difficult to assess murmur, heart sounds distant and lung sounds predominant Pulses: PRESENT: normal radial pulses GI/Abdominal exam: PRESENT: normal bowel sounds, soft. ABSENT: distended, guarding, tenderness Extremities exam: PRESENT: clubbing. ABSENT: pedal edema Musculoskeletal exam: PRESENT: full ROM - Moves all 4 spontaneously but does not follow commands Neurological exam: PRESENT: altered - Does not respond verbally, will withdraw to noxious stimuli, awake. ABSENT: alert Focused psych exam: PRESENT: restlessness Skin exam: PRESENT: dry, mottled, pallor. ABSENT: warm - Cool Results Laboratory Results: 07/20/16 08:10 07/20/16 08:10 07/17/16 07/20/16 07/20/16 04:30 08:10 08:10 WBC 17.3 H RBC 4.35 Hgb 13.1 D Hct 41.7 MCV 96 MCH 30.0 MCHC 31.3 L RDW 14.4 H Plt Count 315 Seg Neutrophils % Not Reportable Lymphocytes % Not Reportable Monocytes % Not Reportable Eosinophils % Not Reportable Basophils % Not Reportable Absolute Neutrophils Not Reportable Absolute Lymphocytes Not Reportable Absolute Monocytes Not Reportable Absolute Eosinophils Not Reportable Absolute Basophils Not Reportable Sodium 145.8 H Potassium 4.4 Chloride 108 H Carbon Dioxide 21 L Anion Gap 17 BUN 57 H Creatinine 2.05 H Est GFR ( Amer) 28 L Est GFR (Non-Af Amer) 23 L Glucose 77 Calcium 10.5 H Transferrin 115 L Impressions: Chest X-Ray 07/19/16 00:00 IMPRESSION: Obstructive lung disease with biapical pleural-parenchymal scarring Pulmonary vascular prominence with trace pleural effusions and right perihilar airspace disease edema versus pneumonia. Assessment & Plan - Diagnosis (1) Pneumonia Qualifiers: Pneumonia type: due to methicillin-sensitive Staphylococcus aureus (MSSA) Laterality: bilateral Lung location: lower lobe of lung Qualified Code(s): J15.211 - Pneumonia due to Methicillin susceptible Staphylococcus aureus Is this a current diagnosis for this admission?: YesPlan: MSSA by culture, continue Rocephin (2) Acute hypoxemic respiratory failure Is this a current diagnosis for this admission?: YesPlan: Stable (3) Accelerated hypertension Is this a current diagnosis for this admission?: YesPlan: Titrate regimen as tolerated (4) COPD with exacerbation Is this a current diagnosis for this admission?: YesPlan: Continue systemic steroids (5) Atrial fibrillation Qualifiers: Atrial fibrillation type: unspecified Qualified Code(s): I48.91 - Unspecified atrial fibrillation Is this a current diagnosis for this admission?: YesPlan: New-onset, likely due to the stress from the above. We'll attempt to treat with intermittent bolusing of calcium channel rhonda and beta rhonda. Venous access is too poor to allow simultaneous IV fluids and Cardizem drip. Per the sons stated wishes will not pursue invasive central venous access. (6) DNR (do not resuscitate) Is this a current diagnosis for this admission?: YesPlan: Reviewed and confirmed with son. Likely moving to comfort measures only in the next 24 hours if she fails to respond. (7) Severe protein-calorie malnutrition Is this a current diagnosis for this admission?: YesPlan: Complicates her recovery, leaves her with little respiratory reserve. - Time Time Spent with patient: 35 or more minutes Anticipated discharge: Other - Is unclear whether she will survive this event or if she does work condition she will be in. Maybe hospice candidate.
[2016-07-20] MEDS: DILTIAZEM HCL INJ 25 MG/5 ML VIAL IV SCH ×2 (16:08→21:33)
[2016-07-21] MEDS: DILTIAZEM HCL INJ 25 MG/5 ML VIAL IV SCH ×4 (03:07→21:03)
[2016-07-21] MEDS: HYDRALAZINE HCL INJ/PF 20 MG/1 ML SDV IV PRN (03:21)
[2016-07-21] MEDS: METOPROLOL TARTRATE PF/INJ 5 MG/5 ML SDV IV SCH ×3 (06:09→18:32)
[2016-07-21] MEDS: CEFTRIAXONE 1 GM/D5W RTU 1 GM/50 ML RTUPB IV SCH (10:17)
[2016-07-21] MEDS: METHYLPREDNISOLONE INJ 40 MG/1 ML SDV IV SCH (10:17)
[2016-07-21] MEDS: PANTOPRAZOLE SODIUM 40 MG VIAL IV SCH (10:18)
[2016-07-21] MEDS: NITROGLYCERIN 10 MG (0.4 MG/HR) PATCH.TD24 TD SCH (10:22)
[2016-07-21] MEDS: LISINOPRIL 10 MG TABLET PO SCH (10:33)
[2016-07-21] MEDS: MEGESTROL ACETATE SUSP 400 MG/10 ML UDCUP PO SCH (10:33)
[2016-07-21] MEDS: ASPIRIN 81 MG TABLET, CHEWABLE PO SCH (10:33)
[2016-07-21] MEDS ORDERED: NORMAL SALINE 1000 ML 1,000 ML with POTASSIUM CHLORIDE 20 MEQ, MAGNESIUM SULFATE 8 MEQ,... IV PRN ×5 (10:54)
--- NOTE | 2016-07-21 12:08 | PDOC PROGRESS REPORT ---
Subjective Progress Note for:: 07/21/16 Subjective:: From H&P:VIKTORIA LEE is a 86 year old female who presents from her doctor's office at [facility] where she was had a follow-up appointment for her shortness of breath that she has been experiencing for the past 2 weeks. Patient denies it being worse, but states that it is very persistent. Patient states that she has a cough and is also congested. Patient's primary care provider became worried when her O2 saturation dropped as low as 75% while in the doctor's office. EMS states that on arrival they read her O2 saturation at 80%. Patient reports purulent sputum but denies hemoptysis. She denies fevers admits to occasional chills and feeling cold. She denies any peripheral edema worsening dyspnea on exertion, or PND or orthopnea. She is referred to the hospital service for COPD exacerbation/pneumonia. Patient's condition is continued to deteriorate. She is no longer verbal responsive. She will follow commands and is been the case for the last 3 days according to the nursing staff. He was not this way on presentation. She is now slipped into atrial fibrillation with a rapid ventricular response rate in the 160s sustained until IV Cardizem given. Patient's oral intake remains minimal and worsened due to onset of encephalopathy. I met with the sons at the bedside and after discussing her case they have decided not to continue pursuing invasive investigations or treatments. They wish to continue current level of care but if her condition were to deteriorate he wishes to focus only on her comfort and allow the condition harnessed medical course. They expressed concern regarding her nutritional status and have requested I add what I can to her IV fluids. They were counseled not to attempt to feed her until she is more alert and interactive. ROS: She is obtunded and unable to participate. She will open her eyes and seems to track me around the room but does not follow commands. Physical Exam Vital Signs: Temp Pulse Resp BP Pulse Ox 98.2 F 85 16 125/86 H 99 07/21/16 07:26 07/21/16 07:26 07/21/16 07:26 07/21/16 07:26 07/21/16 07:26 Intake & Output 07/20/16 07/21/16 07/22/16 06:59 06:59 06:59 Intake Total 338 2019 Balance 338 2019 Weight 32.6 kg 33.2 kg General appearance: PRESENT: no acute distress, thin, other - Severely cachectic Head exam: PRESENT: atraumatic, normocephalic Eye exam: ABSENT: conjunctival injection Mouth exam: PRESENT: dry mucosa - Severe Neck exam: ABSENT: JVD, tracheal deviation Respiratory exam: PRESENT: accessory muscle use, decreased breath sounds - Largely absent from the left, audible only at the apex, retraction Cardiovascular exam: PRESENT: irregular rhythm, tachycardia Pulses: PRESENT: normal radial pulses GI/Abdominal exam: PRESENT: normal bowel sounds, soft. ABSENT: tenderness - No grimace Extremities exam: PRESENT: full ROM - Moves all 4 spontaneously will not follow commands. ABSENT: calf tenderness, pedal edema Neurological exam: PRESENT: altered, awake. ABSENT: alert Skin exam: PRESENT: dry - Pale and cool Results Laboratory Results: 07/20/16 08:10 07/20/16 08:10 Impressions: Chest X-Ray 07/19/16 00:00 IMPRESSION: Obstructive lung disease with biapical pleural-parenchymal scarring Pulmonary vascular prominence with trace pleural effusions and right perihilar airspace disease edema versus pneumonia. Assessment & Plan - Diagnosis (1) Pneumonia Qualifiers: Pneumonia type: due to methicillin-sensitive Staphylococcus aureus (MSSA) Laterality: bilateral Lung location: lower lobe of lung Qualified Code(s): J15.211 - Pneumonia due to Methicillin susceptible Staphylococcus aureus Is this a current diagnosis for this admission?: YesPlan: MSSA by culture, continue Rocephin as per family wishes. Unclear whether she is actually responding. (2) Acute hypoxemic respiratory failure Is this a current diagnosis for this admission?: YesPlan: Stable, not requiring supplemental O2. (3) Accelerated hypertension Is this a current diagnosis for this admission?: YesPlan: Improved. Titrate regimen as tolerated (4) COPD with exacerbation Is this a current diagnosis for this admission?: YesPlan: Stable. Continue systemic steroids (5) Atrial fibrillation Qualifiers: Atrial fibrillation type: unspecified Qualified Code(s): I48.91 - Unspecified atrial fibrillation Is this a current diagnosis for this admission?: YesPlan: New-onset, likely due to the stress from the above. Continue to treat with alternating boluses of calcium channel rhonda and beta rhonda. Venous access is too poor to allow simultaneous IV fluids and Cardizem drip. Per the sons stated wishes will not pursue invasive central venous access or further investigation at this time. (6) DNR (do not resuscitate) Is this a current diagnosis for this admission?: YesPlan: Reviewed and confirmed with son. Likely moving to comfort measures only in the next 24 hours if she fails to respond. (7) Severe protein-calorie malnutrition Is this a current diagnosis for this admission?: YesPlan: Complicates her recovery, leaves her with little respiratory reserve. We will add magnesium, thiamine and a multivitamin to her current IV fluids per the family's wishes. - Time Time Spent with patient: 35 or more minutes - At that time spent in consultation with the family at the bedside. - Plan Summary Plan Summary: Prognosis is grim, it is highly unlikely she will survive this event.
[2016-07-21] MEDS: NORMAL SALINE IV PRN ×4 (14:03)
[2016-07-21] MEDS: [UNRECOGNIZED DRUG - OTHER] IV PRN ×4 (14:03)
[2016-07-21] MEDS: MAGNESIUM SULFATE IV PRN ×4 (14:03)
[2016-07-21] MEDS: MVI IV PRN ×4 (14:03)
[2016-07-21] MEDS: THIAMINE HCL IV PRN ×4 (14:03)
[2016-07-22] MEDS: METOPROLOL TARTRATE PF/INJ 5 MG/5 ML SDV IV SCH ×3 (00:49→12:50)
[2016-07-22] MEDS: DILTIAZEM HCL INJ 25 MG/5 ML VIAL IV SCH ×2 (04:00→08:14)
[2016-07-22] MEDS: DEXTROSE 5%-1/2 NORMAL SALINE 1,000 ML IV PRN (06:38)
[2016-07-22] MEDS: CEFTRIAXONE 1 GM/D5W RTU 1 GM/50 ML RTUPB IV SCH (10:08)
[2016-07-22] MEDS: MEGESTROL ACETATE SUSP 400 MG/10 ML UDCUP PO SCH (10:08)
[2016-07-22] MEDS: PANTOPRAZOLE SODIUM 40 MG VIAL IV SCH (10:09)
[2016-07-22] MEDS: METHYLPREDNISOLONE INJ 40 MG/1 ML SDV IV SCH (10:09)
[2016-07-22] MEDS: ASPIRIN 81 MG TABLET, CHEWABLE PO SCH (10:09)
[2016-07-22] MEDS: NITROGLYCERIN 10 MG (0.4 MG/HR) PATCH.TD24 TD SCH (10:15)
[2016-07-22] MEDS: LISINOPRIL 10 MG TABLET PO SCH (10:16)
--- NOTE | 2016-07-22 15:10 | PDOC PROGRESS REPORT ---
Subjective Progress Note for:: 07/22/16 Subjective:: From H&P:VIKTORIA LEE is a 86 year old female who presents from her doctor's office at [facility] where she was had a follow-up appointment for her shortness of breath that she has been experiencing for the past 2 weeks. Patient denies it being worse, but states that it is very persistent. Patient states that she has a cough and is also congested. Patient's primary care provider became worried when her O2 saturation dropped as low as 75% while in the doctor's office. EMS states that on arrival they read her O2 saturation at 80%. Patient reports purulent sputum but denies hemoptysis. She denies fevers admits to occasional chills and feeling cold. She denies any peripheral edema worsening dyspnea on exertion, or PND or orthopnea. She is referred to the hospital service for COPD exacerbation/pneumonia. Patient's condition deteriorated rapidly and She became unresponsive. She would not follow commands and is been the case for the last 3 days according to the nursing staff. He was not this way on presentation. She also slipped into atrial fibrillation with a rapid ventricular response rate in the 160s sustained until IV Cardizem given. Patient's oral intake remains minimal and worsened due to onset of encephalopathy. I met with the sons at the bedside and after discussing her case they have decided not to continue pursuing invasive investigations or treatments. They wish to continue current level of care but if her condition were to deteriorate he wishes to focus only on her comfort and allow the condition harnessed medical course. They expressed concern regarding her nutritional status and have requested I add what I can to her IV fluids. They were counseled not to attempt to feed her until she is more alert and interactive. We started her on IV fluids and added trace minerals and vitamins and she has had a remarkable recovery, almost Alin like as she is now sitting upright in the bedside chair conversant with her family. Her answers are appropriate, her requests our sincere and she expresses gratitude to the care she has received so far. She denies chest pain but continues to complain of shortness of breath with any exertion and cough that's difficult for her to clear. ROS: She is obtunded and unable to participate. She will open her eyes and seems to track me around the room but does not follow commands. Physical Exam Vital Signs: Temp Pulse Resp BP Pulse Ox 98.3 F 81 18 186/69 H 98 07/22/16 12:07 07/22/16 12:07 07/22/16 12:07 07/22/16 12:07 07/22/16 12:07 Intake & Output 07/21/16 07/22/16 07/23/16 06:59 06:59 06:59 Intake Total 2018 3009 Balance 2018 3009 Weight 33.2 kg EXAM GENERAL: NAD; well developed, cachectic; alert and oriented person, but not place, time, or situation HEENT: normocephalic, atraumatic; no conjunctival injection, no scleral icterus ; oral mucosa moist; RESPIRATORY: no accessory muscle use, no increased WOB, improved air entry bilaterally particularly on the left; no wheezes, rhonchi; left inspiratory crackles CARDIO: no JVD; RRR; no systolic murmur; no tachycardia GI: soft; nondistended; normal bowel sounds; no hepato spleno megaly; no rebound, rigidity, guarding; nontender VASCULAR: no carotid bruit; no abdominal bruit; no pallor; 2+ radial, DP pulse ; normal capillary refill EXTREMITIES: no calf tender; no palpable cords in calf; no clubbing, cyanosis , pedal edema PSYCH: normal affect, normal mood SKIN: warm; moist; no petechiae; no telengectasias; no jaundice; no rash Results Laboratory Results: 07/20/16 08:10 07/20/16 08:10 Impressions: Chest X-Ray 07/19/16 00:00 IMPRESSION: Obstructive lung disease with biapical pleural-parenchymal scarring Pulmonary vascular prominence with trace pleural effusions and right perihilar airspace disease edema versus pneumonia. Assessment & Plan - Diagnosis (1) Pneumonia Qualifiers: Pneumonia type: due to methicillin-sensitive Staphylococcus aureus (MSSA) Laterality: bilateral Lung location: lower lobe of lung Qualified Code(s): J15.211 - Pneumonia due to Methicillin susceptible Staphylococcus aureus Is this a current diagnosis for this admission?: YesPlan: MSSA by culture, continue Rocephin, supplement oxygen, nebulizer therapy. (2) Acute hypoxemic respiratory failure Is this a current diagnosis for this admission?: YesPlan: Stable, not requiring supplemental O2. (3) Accelerated hypertension Is this a current diagnosis for this admission?: YesPlan: Fluctuating. Titrate regimen as tolerated and resume oral (4) COPD with exacerbation Is this a current diagnosis for this admission?: YesPlan: Stable. Continue systemic steroids (5) Atrial fibrillation Qualifiers: Atrial fibrillation type: unspecified Qualified Code(s): I48.91 - Unspecified atrial fibrillation Is this a current diagnosis for this admission?: YesPlan: New-onset, likely due to the stress from the above. Change to oral calcium channel rhonda and beta rhonda. No further investigation at this time as family wishes for less invasive approach. (6) DNR (do not resuscitate) Is this a current diagnosis for this admission?: YesPlan: Reviewed and confirmed with son. Likely moving to comfort measures only in the next 24 hours if she fails to respond. (7) Severe protein-calorie malnutrition Is this a current diagnosis for this admission?: YesPlan: Complicates her recovery, leaves her with little respiratory reserve. We will add magnesium, thiamine and a multivitamin to her current IV fluids per the family's wishes. Advance her diet as tolerated, add nutritional supplement as tolerated. - Time Time Spent with patient: 35 or more minutes - Plan Summary Plan Summary: She has taken a sudden and rather miraculous turn for the better, hopefully this is a sign a positive things to come. We'll begin physical therapy to determine what her functional status is in an effort to help make a disposition decisions soon
[2016-07-22] MEDS ORDERED: METOPROLOL SUCCINATE 25 MG TAB.SR.24H PO ONE (15:45)
[2016-07-22] MEDS ORDERED: DILTIAZEM HCL 240 MG CAPSULE.CR PO ONE (15:45)
[2016-07-22] MEDS: [UNRECOGNIZED DRUG - OTHER] IV PRN ×4 (16:24)
[2016-07-22] MEDS: MVI IV PRN ×4 (16:24)
[2016-07-22] MEDS: THIAMINE HCL IV PRN ×4 (16:24)
[2016-07-22] MEDS: MAGNESIUM SULFATE IV PRN ×4 (16:24)
[2016-07-22] MEDS: NORMAL SALINE IV PRN ×4 (16:24)
[2016-07-22] MEDS ORDERED: METOPROLOL SUCCINATE 25 MG TAB.SR.24H PO SCH (22:00)
[2016-07-23] MEDS ORDERED: OXYCODONE HCL IR 5 MG TABLET PO ONE (03:55)
[2016-07-23] MEDS: LANSOPRAZOLE 30 MG TAB.RAP.DR PO SCH (05:18)
[2016-07-23] MEDS ORDERED: PREGABALIN 100 MG CAPSULE ONE (05:20)
[2016-07-23 05:23] LABS: MEAN CORPUSCULAR VOLUME 97 fl (80-97)
[2016-07-23 05:33] LABS: HEMATOCRIT 34.2 % (36.0-47.0); HGB HCT DIFFERENCE -1.5; MEAN CORPUSCULAR HEMOGLOBIN 30.9 pg (27.0-33.4); MEAN CORPUSCULAR HGB CONC 31.9 g/dL (32.0-36.0); RED BLOOD COUNT 3.54 10^6/uL (3.72-5.28); RED CELL DISTRIBUTION WIDTH 14.9 % (11.5-14.0)
[2016-07-23 05:34] LABS: HEMOGLOBIN 10.9 g/dL (12.0-15.5)
[2016-07-23 05:43] LABS: ALANINE AMINOTRANSFERASE 25 U/L (9-52); ALKALINE PHOSPHATASE 70 U/L (38-126); ANION GAP 12 (5-19); ASPARTATE AMINO TRANSFERASE 25 U/L (14-36); BILIRUBIN,TOTAL 0.4 mg/dL (0.2-1.3); BLOOD UREA NITROGEN 53 mg/dL (7-20); CARBON DIOXIDE 20 mmol/L (22-30); CHLORIDE 112 mmol/L (98-107); CREATININE RESULT 1.84 mg/dL (0.52-1.25); GLUCOSE 120 mg/dL (75-110); PHOSPHORUS 3.3 mg/dL (2.5-4.5); POTASSIUM 4.5 mmol/L (3.6-5.0); SODIUM 144.1 mmol/L (137-145); TOTAL PROTEIN 7.4 g/dL (6.3-8.2)
[2016-07-23 05:51] LABS: BASOPHILS % (MANUAL) 0 % (0-2); EOSINOPHILS % (MANUAL) 0 % (0-6); LYMPHOCYTES % (MANUAL) 3 % (13-45); TOTAL CELLS COUNTED 100
[2016-07-23 05:53] LABS: ANISOCYTOSIS SLIGHT; OVALOCYTES SLIGHT; TOXIC GRANULATION SLIGHT
[2016-07-23] MEDS: MEGESTROL ACETATE SUSP 400 MG/10 ML UDCUP PO SCH (09:43)
[2016-07-23] MEDS: METHYLPREDNISOLONE INJ 40 MG/1 ML SDV IV SCH (09:43)
[2016-07-23] MEDS: ASPIRIN 81 MG TABLET, CHEWABLE PO SCH (09:43)
[2016-07-23] MEDS: NITROGLYCERIN 10 MG (0.4 MG/HR) PATCH.TD24 TD SCH (09:43)
[2016-07-23] MEDS: DILTIAZEM HCL 240 MG CAPSULE.CR PO SCH (09:43)
[2016-07-23] MEDS: LISINOPRIL 10 MG TABLET PO SCH (09:43)
[2016-07-23] MEDS: CEFTRIAXONE 1 GM/D5W RTU 1 GM/50 ML RTUPB IV SCH (10:21)
[2016-07-23] MEDS ORDERED: METOPROLOL SUCCINATE 25 MG TAB.SR.24H PO ONE (11:00)
--- NOTE | 2016-07-23 11:53 | PDOC PROGRESS REPORT ---
Subjective Progress Note for:: 07/23/16 Subjective:: From H&P:VIKTORIA LEE is a 86 year old female who presents from her doctor's office at [facility] where she was had a follow-up appointment for her shortness of breath that she has been experiencing for the past 2 weeks. Patient denies it being worse, but states that it is very persistent. Patient states that she has a cough and is also congested. Patient's primary care provider became worried when her O2 saturation dropped as low as 75% while in the doctor's office. EMS states that on arrival they read her O2 saturation at 80%. Patient reports purulent sputum but denies hemoptysis. She denies fevers admits to occasional chills and feeling cold. She denies any peripheral edema worsening dyspnea on exertion, or PND or orthopnea. She is referred to the hospital service for COPD exacerbation/pneumonia. Patient's condition deteriorated rapidly and She became unresponsive. She would not follow commands and remained that way for 3 days according to the nursing staff. She was not this way on presentation. She also slipped into atrial fibrillation with a rapid ventricular response rate in the 160s sustained until IV Cardizem given. Patient's oral intake remains minimal and worsened due to onset of encephalopathy. I met with the sons at the bedside and after discussing her case they have decided not to continue pursuing invasive investigations or treatments. They wish to continue current level of care but if her condition were to deteriorate he wishes to focus only on her comfort and allow the condition harnessed medical course. They expressed concern regarding her nutritional status and have requested I add what I can to her IV fluids. They were counseled not to attempt to feed her until she is more alert and interactive. We started her on IV fluids and added trace minerals and vitamins and she has had a remarkable recovery, almost Alin like as she is now sitting upright in the bedside chair conversant with her family. Her answers are appropriate, her requests our sincere and she expresses gratitude for the care she has received so far. She denies chest pain but continues to complain of shortness of breath with any exertion and cough that's difficult for her to clear. ROS: Total 10 systems are reviewed with the patient pertinent positives and negatives noted above the remaining systems are negative Physical Exam Vital Signs: Temp Pulse Resp BP Pulse Ox 98.3 F 63 19 162/80 H 90 L 01/27/17 08:13 07/23/16 08:13 07/23/16 08:13 07/23/16 08:13 07/23/16 08:13 Intake & Output 07/22/16 07/23/16 07/24/16 06:59 06:59 06:59 Intake Total 3009 625 Balance 3009 625 EXAM GENERAL: NAD; well developed, cachectic; alert and oriented person, and place HEENT: normocephalic, atraumatic; no conjunctival injection, no scleral icterus ; oral mucosa moist; RESPIRATORY: no accessory muscle use, no increased WOB, improved air entry bilaterally particularly on the left; no wheezes, rhonchi; left inspiratory crackles persist CARDIO: no JVD; RRR; no systolic murmur; no tachycardia GI: soft; nondistended; normal bowel sounds; no hepato spleno megaly; no rebound, rigidity, guarding; nontender VASCULAR: no carotid bruit; no abdominal bruit; no pallor; 2+ radial, DP pulse ; normal capillary refill EXTREMITIES: no calf tender; no palpable cords in calf; no clubbing, cyanosis , pedal edema PSYCH: normal affect, normal mood SKIN: warm; moist; no petechiae; no telengectasias; no jaundice; no rash MSK: Severe lordosis Results Laboratory Results: 07/23/16 04:48 07/23/16 04:48 07/23/16 07/23/16 04:48 04:48 WBC 12.0 H RBC 3.54 L Hgb 10.9 L D Hct 34.2 L MCV 97 MCH 30.9 MCHC 31.9 L RDW 14.9 H Plt Count 220 Seg Neutrophils % Not Reportable Lymphocytes % Not Reportable Monocytes % Not Reportable Eosinophils % Not Reportable Basophils % Not Reportable Absolute Neutrophils Not Reportable Absolute Lymphocytes Not Reportable Absolute Monocytes Not Reportable Absolute Eosinophils Not Reportable Absolute Basophils Not Reportable Sodium 144.1 Potassium 4.5 Chloride 112 H Carbon Dioxide 20 L Anion Gap 12 BUN 53 H Creatinine 1.84 H Est GFR ( Amer) 31 L Est GFR (Non-Af Amer) 26 L Glucose 120 H Calcium 9.0 Phosphorus 3.3 Magnesium 2.0 Total Bilirubin 0.4 AST 25 ALT 25 Alkaline Phosphatase 70 Total Protein 7.4 Albumin 3.0 L Impressions: Chest X-Ray 07/19/16 00:00 IMPRESSION: Obstructive lung disease with biapical pleural-parenchymal scarring Pulmonary vascular prominence with trace pleural effusions and right perihilar airspace disease edema versus pneumonia. Assessment & Plan - Diagnosis (1) Pneumonia Qualifiers: Pneumonia type: due to methicillin-sensitive Staphylococcus aureus (MSSA) Laterality: bilateral Lung location: lower lobe of lung Qualified Code(s): J15.211 - Pneumonia due to Methicillin susceptible Staphylococcus aureus Is this a current diagnosis for this admission?: YesPlan: Improving. MSSA by culture, continue Rocephin, supplement oxygen, nebulizer therapy. (2) Acute hypoxemic respiratory failure Is this a current diagnosis for this admission?: YesPlan: Stable, not requiring supplemental O2. (3) Accelerated hypertension Is this a current diagnosis for this admission?: YesPlan: Fluctuating. Titrate regimen as tolerated and resume oral (4) COPD with exacerbation Is this a current diagnosis for this admission?: YesPlan: Stable. Continue systemic steroids (5) Atrial fibrillation Qualifiers: Atrial fibrillation type: unspecified Qualified Code(s): I48.91 - Unspecified atrial fibrillation Is this a current diagnosis for this admission?: YesPlan: New-onset, likely due to the stress from the above. Changed to oral calcium channel rhonda and beta rhonda. No further investigation at this time as family wishes for less invasive approach. Some borderline tachycardia this morning so will titrate her regimen accordingly. (6) DNR (do not resuscitate) Is this a current diagnosis for this admission?: YesPlan: Reviewed and confirmed with son. (7) Severe protein-calorie malnutrition Is this a current diagnosis for this admission?: YesPlan: Complicates her recovery, leaves her with little respiratory reserve. We will add magnesium, thiamine and a multivitamin to her current IV fluids per the family's wishes. Advance her diet as tolerated, add nutritional supplement as tolerated. - Time Time Spent with patient: 35 or more minutes Anticipated discharge: Acute Rehab Within: within 72 hours - Plan Summary Plan Summary: Continue current level of care. PT eval and treat. Will likely need rehabilitation before returning home to independent living.
[2016-07-23] MEDS: METOPROLOL SUCCINATE 25 MG TAB.SR.24H PO SCH (21:49)
[2016-07-24] MEDS: DEXTROSE 5%-1/2 NORMAL SALINE 1,000 ML IV PRN ×2 (01:45→23:58)
[2016-07-24] MEDS ORDERED: LORAZEPAM 0.5 MG TABLET PO ONE (02:57)
[2016-07-24] MEDS: HYDRALAZINE HCL INJ/PF 20 MG/1 ML SDV IV PRN ×2 (03:35→17:16)
[2016-07-24] MEDS: LANSOPRAZOLE 30 MG TAB.RAP.DR PO SCH (05:45)
[2016-07-24] MEDS: METHYLPREDNISOLONE INJ 40 MG/1 ML SDV IV SCH (10:04)
[2016-07-24] MEDS: MEGESTROL ACETATE SUSP 400 MG/10 ML UDCUP PO SCH (10:05)
[2016-07-24] MEDS: CEFTRIAXONE 1 GM/D5W RTU 1 GM/50 ML RTUPB IV SCH (10:05)
[2016-07-24] MEDS: NITROGLYCERIN 10 MG (0.4 MG/HR) PATCH.TD24 TD SCH (10:05)
[2016-07-24] MEDS: DILTIAZEM HCL 240 MG CAPSULE.CR PO SCH (10:06)
[2016-07-24] MEDS: ASPIRIN 81 MG TABLET, CHEWABLE PO SCH (10:06)
[2016-07-24] MEDS: LISINOPRIL 10 MG TABLET PO SCH (10:06)
[2016-07-24] MEDS: METOPROLOL SUCCINATE 25 MG TAB.SR.24H PO SCH (10:07)
--- NOTE | 2016-07-24 11:35 | PDOC PROGRESS REPORT ---
Subjective Progress Note for:: 07/24/16 Subjective:: From H&P:VIKTORIA LEE is a 86 year old female who presents from her doctor's office at [facility] where she was had a follow-up appointment for her shortness of breath that she has been experiencing for the past 2 weeks. Patient denies it being worse, but states that it is very persistent. Patient states that she has a cough and is also congested. Patient's primary care provider became worried when her O2 saturation dropped as low as 75% while in the doctor's office. EMS states that on arrival they read her O2 saturation at 80%. Patient reports purulent sputum but denies hemoptysis. She denies fevers admits to occasional chills and feeling cold. She denies any peripheral edema worsening dyspnea on exertion, or PND or orthopnea. She is referred to the hospital service for COPD exacerbation/pneumonia. Patient's condition deteriorated rapidly and She became unresponsive. She would not follow commands and remained that way for 3 days according to the nursing staff. She was not this way on presentation. She also slipped into atrial fibrillation with a rapid ventricular response rate in the 160s sustained until IV Cardizem given. Patient's oral intake remains minimal and worsened due to onset of encephalopathy. I met with the sons at the bedside and after discussing her case they have decided not to continue pursuing invasive investigations or treatments. They wish to continue current level of care but if her condition were to deteriorate he wishes to focus only on her comfort and allow the condition harnessed medical course. They expressed concern regarding her nutritional status and have requested I add what I can to her IV fluids. They were counseled not to attempt to feed her until she is more alert and interactive. We started her on IV fluids and added trace minerals and vitamins and she has had a remarkable recovery on 07/23/2016 almost Alin like as she was found sitting upright in the bedside chair conversant with her family. Her answers became appropriate, her requests are sincere and she expressed gratitude for the care she has received so far. Since that time however she's had a more waxing and waning course. Apparently during the night she became very agitated and confused again requiring a small dose of Ativan to calm her. This morning 07/24/2016 she is once again obtunded responding only to noxious verbal or tactile stimuli. ROS: Unable to determine due to current mental state Physical Exam Vital Signs: Temp Pulse Resp BP Pulse Ox 97.6 F 76 16 176/83 H 97 07/23/16 23:50 07/24/16 07:31 07/24/16 07:31 07/24/16 07:31 07/24/16 07:31 Intake & Output 07/23/16 07/24/16 07/25/16 06:59 06:59 06:59 Intake Total 625 580 Balance 625 580 EXAM GENERAL: NAD; well developed, cachectic; obtunded HEENT: normocephalic, atraumatic; no conjunctival injection, no scleral icterus ; oral mucosa moist; RESPIRATORY: no accessory muscle use, no increased WOB, improved air entry bilaterally particularly on the left; no wheezes, rhonchi; left inspiratory crackles persist CARDIO: no JVD; RRR; no systolic murmur; no tachycardia GI: soft; nondistended; normal bowel sounds; no hepato spleno megaly; no rebound, rigidity, guarding; nontender VASCULAR: no carotid bruit; no abdominal bruit; no pallor; 2+ radial, DP pulse ; normal capillary refill EXTREMITIES: no calf tender; no palpable cords in calf; no clubbing, cyanosis , pedal edema SKIN: warm; moist; no petechiae; no telengectasias; no jaundice; no rash MSK: Severe lordosis Results Laboratory Results: 07/23/16 04:48 07/23/16 04:48 Impressions: Chest X-Ray 07/19/16 00:00 IMPRESSION: Obstructive lung disease with biapical pleural-parenchymal scarring Pulmonary vascular prominence with trace pleural effusions and right perihilar airspace disease edema versus pneumonia. Assessment & Plan - Diagnosis (1) Pneumonia Qualifiers: Pneumonia type: due to methicillin-sensitive Staphylococcus aureus (MSSA) Laterality: bilateral Lung location: lower lobe of lung Qualified Code(s): J15.211 - Pneumonia due to Methicillin susceptible Staphylococcus aureus Is this a current diagnosis for this admission?: YesPlan: Improving, better air entry bilateral. MSSA by culture, continue Rocephin, supplement oxygen, nebulizer therapy. (2) Acute hypoxemic respiratory failure Is this a current diagnosis for this admission?: YesPlan: Stable, not requiring supplemental O2. (3) Accelerated hypertension Is this a current diagnosis for this admission?: YesPlan: Fluctuating. Titrate regimen as tolerated and resume oral as tolerated. (4) COPD with exacerbation Is this a current diagnosis for this admission?: YesPlan: Stable. Continue systemic steroids (5) Atrial fibrillation Qualifiers: Atrial fibrillation type: unspecified Qualified Code(s): I48.91 - Unspecified atrial fibrillation Is this a current diagnosis for this admission?: YesPlan: New-onset, likely due to the stress from the above. Changed to oral calcium channel rhonda and beta rhonda. No further investigation at this time as family wishes for less invasive approach. Some borderline tachycardia periodically, will titrate her regimen accordingly. (6) DNR (do not resuscitate) Is this a current diagnosis for this admission?: Yes (7) Severe protein-calorie malnutrition Is this a current diagnosis for this admission?: Yes - Time Time Spent with patient: 25-34 minutes
[2016-07-24] MEDS: METOPROLOL TARTRATE PF/INJ 5 MG/5 ML SDV IV SCH ×2 (18:11→23:53)
[2016-07-24] MEDS ORDERED: MORPHINE SULFATE 10 MG/ML INJ IV PRN (18:33)
[2016-07-25] MEDS: DILTIAZEM HCL INJ 25 MG/5 ML VIAL IV SCH ×4 (08:12→21:35)
[2016-07-25] MEDS: LANSOPRAZOLE 30 MG TAB.RAP.DR PO SCH (08:12)
[2016-07-25] MEDS: METOPROLOL TARTRATE PF/INJ 5 MG/5 ML SDV IV SCH ×3 (08:12→18:06)
[2016-07-25] MEDS: CEFTRIAXONE 1 GM/D5W RTU 1 GM/50 ML RTUPB IV SCH (09:31)
[2016-07-25] MEDS: METHYLPREDNISOLONE INJ 40 MG/1 ML SDV IV SCH (09:31)
[2016-07-25] MEDS: NITROGLYCERIN 10 MG (0.4 MG/HR) PATCH.TD24 TD SCH (09:31)
[2016-07-25] MEDS: LISINOPRIL 10 MG TABLET PO SCH (09:33)
[2016-07-25] MEDS: MEGESTROL ACETATE SUSP 400 MG/10 ML UDCUP PO SCH (09:33)
[2016-07-25] MEDS: ASPIRIN 81 MG TABLET, CHEWABLE PO SCH (09:33)
--- NOTE | 2016-07-25 11:05 | PDOC PROGRESS REPORT ---
Subjective Progress Note for:: 07/25/16 Subjective:: From H&P:VIKTORIA LEE is a 86 year old female who presents from her doctor's office at [facility] where she was had a follow-up appointment for her shortness of breath that she has been experiencing for the past 2 weeks. Patient denies it being worse, but states that it is very persistent. Patient states that she has a cough and is also congested. Patient's primary care provider became worried when her O2 saturation dropped as low as 75% while in the doctor's office. EMS states that on arrival they read her O2 saturation at 80%. Patient reports purulent sputum but denies hemoptysis. She denies fevers admits to occasional chills and feeling cold. She denies any peripheral edema worsening dyspnea on exertion, or PND or orthopnea. She is referred to the hospital service for COPD exacerbation/pneumonia. Patient's condition deteriorated rapidly and She became unresponsive. She would not follow commands and remained that way for 3 days according to the nursing staff. She was not this way on presentation. She also slipped into atrial fibrillation with a rapid ventricular response rate in the 160s sustained until IV Cardizem given. Patient's oral intake remains minimal and worsened due to onset of encephalopathy. I met with the sons at the bedside and after discussing her case they have decided not to continue pursuing invasive investigations or treatments. They wish to continue current level of care but if her condition were to deteriorate he wishes to focus only on her comfort and allow the condition harnessed medical course. They expressed concern regarding her nutritional status and have requested I add what I can to her IV fluids. They were counseled not to attempt to feed her until she is more alert and interactive. We started her on IV fluids and added trace minerals and vitamins and she has had a remarkable recovery on 07/23/2016 almost Alin like as she was found sitting upright in the bedside chair conversant with her family. Her answers became appropriate, her requests sincere and she expressed gratitude for the care she has received. Since that time however she's had a more waxing and waning course. Apparently during the night she became very agitated and confused again requiring a small dose of Ativan to calm her. On the morning of 07/24/2016 she is once again obtunded responding only to noxious verbal or tactile stimuli and remains that way the morning of 07/25/2016. Her O2 requirements have increased to 6 L/m and an unfortunate consequence of the gentle IV fluids given includes the development of at least mild pulmonary edema contributing to her current situation. ROS: Unable to determine due to current mental state Physical Exam Vital Signs: Temp Pulse Resp BP Pulse Ox 97.8 F 131 H 16 162/76 H 100 07/25/16 08:17 07/25/16 08:17 07/25/16 08:17 07/25/16 08:17 07/25/16 08:17 Intake & Output 07/24/16 07/25/16 07/26/16 06:59 06:59 06:59 Intake Total 580 461 Balance 580 461 Weight 33.2 kg EXAM GENERAL: NAD; well developed, cachectic; obtunded once again HEENT: normocephalic, atraumatic; no conjunctival injection, no scleral icterus ; oral mucosa moist; RESPIRATORY: Intercostal accessory muscle use, mild increased WOB, worsened air entry bilaterally particularly on the left; no wheezes, rhonchi; left inspiratory crackles persist CARDIO: no JVD; RRR; soft systolic murmur; no tachycardia GI: soft; nondistended; normal bowel sounds; no hepato spleno megaly; no rebound, rigidity, guarding; nontender VASCULAR: no carotid bruit; no abdominal bruit; no pallor; 2+ radial, DP pulse ; normal capillary refill EXTREMITIES: no calf tender; no palpable cords in calf; no clubbing, cyanosis , pedal edema SKIN: warm; moist; no petechiae; no telengectasias; no jaundice; no rash MSK: Severe lordosis Results Laboratory Results: 07/23/16 04:48 07/23/16 04:48 Impressions: Chest X-Ray 07/25/16 09:03 IMPRESSION: Asymmetric edema or pneumonia on a background of COPD. Assessment & Plan - Diagnosis (1) Pneumonia Qualifiers: Pneumonia type: due to methicillin-sensitive Staphylococcus aureus (MSSA) Laterality: bilateral Lung location: lower lobe of lung Qualified Code(s): J15.211 - Pneumonia due to Methicillin susceptible Staphylococcus aureus Is this a current diagnosis for this admission?: YesPlan: About the same. MSSA by culture, continue Rocephin, supplement oxygen, nebulizer therapy. (2) Acute hypoxemic respiratory failure Is this a current diagnosis for this admission?: YesPlan: Worsening and now requiring supplemental O2, likely due to the development of pulmonary edema and worsening inflammatory changes bilateral. Her hemodynamic and her volume status is tenuous at best, she has little to no oral intake now that she obtunded again and as a result I elected to allow insensible losses returned her to euvolemic, rather than IV diuretics unless her condition worsens further. (3) Accelerated hypertension Is this a current diagnosis for this admission?: YesPlan: Fluctuating. Titrate regimen as tolerated and resume oral as tolerated. (4) COPD with exacerbation Is this a current diagnosis for this admission?: YesPlan: Stable. Continue once daily systemic steroids (5) Atrial fibrillation Qualifiers: Atrial fibrillation type: unspecified Qualified Code(s): I48.91 - Unspecified atrial fibrillation Is this a current diagnosis for this admission?: YesPlan: New-onset, likely due to the stress from the above. Continue calcium channel rhonda and beta rhonda. No further investigation at this time as family wishes for less invasive approach. Some borderline tachycardia periodically, will titrate her regimen accordingly. (6) DNR (do not resuscitate) Is this a current diagnosis for this admission?: Yes (7) Severe protein-calorie malnutrition Is this a current diagnosis for this admission?: YesPlan: Complicates her recovery, leaves her with little respiratory reserve. Advance her diet as tolerated, add nutritional supplement as tolerated. - Time Time Spent with patient: 35 or more minutes - Plan Summary Plan Summary: Discussed with her son at the bedside and while he is dismayed at this turn for the worse he is not surprised and continues to hope for the best, wanting us to continue current level of care without escalating from here. Check a set of labs in the morning to document where we customer quality engineer an effort to help the family make more informed decisions going forward. Her son reports to me on 2016 that she started seeing and talking to relatives, always a worrisome sign.
[2016-07-25 15:30] LABS: HEMATOCRIT 37.2 % (36.0-47.0); HEMOGLOBIN 11.5 g/dL (12.0-15.5); HGB HCT DIFFERENCE -2.7; MEAN CORPUSCULAR HEMOGLOBIN 30.6 pg (27.0-33.4); MEAN CORPUSCULAR HGB CONC 31.1 g/dL (32.0-36.0); MEAN CORPUSCULAR VOLUME 99 fl (80-97); RED BLOOD COUNT 3.77 10^6/uL (3.72-5.28); RED CELL DISTRIBUTION WIDTH 15.4 % (11.5-14.0); WHITE BLOOD COUNT 13.9 10^3/uL (4.0-10.5)
[2016-07-25 15:46] LABS: BAND NEUTROPHILS % (MANUAL) 1 % (3-5); BASOPHILS % (MANUAL) 0 % (0-2); EOSINOPHILS % (MANUAL) 0 % (0-6); LYMPHOCYTES % (MANUAL) 0 % (13-45); TOTAL CELLS COUNTED 100
[2016-07-25 15:47] LABS: ANION GAP 15 (5-19); BLOOD UREA NITROGEN 75 mg/dL (7-20); CALCIUM 9.3 mg/dL (8.4-10.2); CARBON DIOXIDE 18 mmol/L (22-30); CHLORIDE 113 mmol/L (98-107); CREATININE RESULT 1.96 mg/dL (0.52-1.25); GLUCOSE 119 mg/dL (75-110); POTASSIUM 4.8 mmol/L (3.6-5.0); RBC MORPHOLOGY COMMENT NORMO-CYTIC/CHROMIC; SODIUM 146.1 mmol/L (137-145)
[2016-07-26] MEDS: METOPROLOL TARTRATE PF/INJ 5 MG/5 ML SDV IV SCH ×4 (00:53→18:54)
[2016-07-26] MEDS: DILTIAZEM HCL INJ 25 MG/5 ML VIAL IV SCH ×4 (03:00→21:56)
[2016-07-26] MEDS: LANSOPRAZOLE 30 MG TAB.RAP.DR PO SCH (06:57)
[2016-07-26] MEDS: NITROGLYCERIN 10 MG (0.4 MG/HR) PATCH.TD24 TD SCH (09:16)
[2016-07-26] MEDS: METHYLPREDNISOLONE INJ 40 MG/1 ML SDV IV SCH (09:17)
[2016-07-26] MEDS: CEFTRIAXONE 1 GM/D5W RTU 1 GM/50 ML RTUPB IV SCH (09:17)
[2016-07-26] MEDS: ASPIRIN 81 MG TABLET, CHEWABLE PO SCH (09:18)
[2016-07-26] MEDS: MEGESTROL ACETATE SUSP 400 MG/10 ML UDCUP PO SCH (09:18)
[2016-07-26] MEDS: LISINOPRIL 10 MG TABLET PO SCH (09:18)
--- NOTE | 2016-07-26 17:35 | PDOC PROGRESS REPORT ---
Subjective Progress Note for:: 07/26/16 Subjective:: From H&P:VIKTORIA LEE is a 86 year old female who presents from her doctor's office at [facility] where she was had a follow-up appointment for her shortness of breath that she has been experiencing for the past 2 weeks. Patient denies it being worse, but states that it is very persistent. Patient states that she has a cough and is also congested. Patient's primary care provider became worried when her O2 saturation dropped as low as 75% while in the doctor's office. EMS states that on arrival they read her O2 saturation at 80%. Patient reports purulent sputum but denies hemoptysis. She denies fevers admits to occasional chills and feeling cold. She denies any peripheral edema worsening dyspnea on exertion, or PND or orthopnea. She is referred to the hospital service for COPD exacerbation/pneumonia. Patient's condition deteriorated rapidly and She became unresponsive. She would not follow commands and remained that way for 3 days according to the nursing staff. She was not this way on presentation. She also slipped into atrial fibrillation with a rapid ventricular response rate in the 160s sustained until IV Cardizem given. Patient's oral intake remains minimal and worsened due to onset of encephalopathy. I met with the sons at the bedside and after discussing her case they have decided not to continue pursuing invasive investigations or treatments. They wish to continue current level of care but if her condition were to deteriorate he wishes to focus only on her comfort and allow the condition harnessed medical course. They expressed concern regarding her nutritional status and have requested I add what I can to her IV fluids. They were counseled not to attempt to feed her until she is more alert and interactive. We started her on IV fluids and added trace minerals and vitamins and she has had a remarkable recovery on 07/23/2016 almost Alin like as she was found sitting upright in the bedside chair conversant with her family. Her answers became appropriate, her requests sincere and she expressed gratitude for the care she has received. Since that time however she's had a more waxing and waning course. Apparently during the last couple nights she became very agitated and confused again requiring a small dose of Ativan to calm her. On the morning of 07/24/2016 she is once again obtunded responding only to noxious verbal or tactile stimuli and remains that way the morning of 07/25/2016. Her O2 requirements have increased to 6 L/m and an unfortunate consequence of the gentle IV fluids given includes the development of at least mild pulmonary edema contributing to her current situation. 07/26/2016 she is a bit more responsive but now complaining of generalized pain and I believe the signs of finally recognized that she likely is not going to improve from this situation and they have now requested transfer to a facility closer to home for end-of- life care. A long discussion with them regarding her treatment here we have elected to stop antibiotics, not provide any more fluids or artificial feedings or parenteral supplements and change the focus of our care to comfort measures. ROS: Unable to determine due to current mental state Physical Exam Vital Signs: Temp Pulse Resp BP Pulse Ox 97.4 F 46 L 18 122/50 L 95 07/26/16 15:34 07/26/16 15:34 07/26/16 15:34 07/26/16 15:34 07/26/16 16:43 Intake & Output 07/25/16 07/26/16 07/27/16 06:59 06:59 06:59 Intake Total 461 802 Balance 461 802 Weight 33.2 kg 36.6 kg EXAM GENERAL: NAD; well developed, cachectic; will open her eyes, speaks in a very soft voice, not consistent with her answers. HEENT: normocephalic, atraumatic; no conjunctival injection, no scleral icterus ; oral mucosa dry; RESPIRATORY: Intercostal accessory muscle use, mild increased WOB, worsened air entry bilaterally particularly on the left and once again absent breath sounds at the left base with rales to the apex; no wheezes, rhonchi; CARDIO: no JVD; RRR; soft systolic murmur; no tachycardia GI: soft; nondistended; normal bowel sounds; no hepato spleno megaly; no rebound, rigidity, guarding; nontender VASCULAR: no carotid bruit; no abdominal bruit; no pallor; 2+ radial, DP pulse ; normal capillary refill EXTREMITIES: no calf tender; no palpable cords in calf; no clubbing, cyanosis , pedal edema SKIN: warm; moist; no petechiae; no telengectasias; no jaundice; no rash MSK: Severe lordosis; severe muscle wasting. Results Laboratory Results: 07/25/16 15:01 07/25/16 15:01 Impressions: Chest X-Ray 07/25/16 09:03 IMPRESSION: Asymmetric edema or pneumonia on a background of COPD. Assessment & Plan - Diagnosis (1) Pneumonia Qualifiers: Pneumonia type: due to methicillin-sensitive Staphylococcus aureus (MSSA) Laterality: bilateral Lung location: lower lobe of lung Qualified Code(s): J15.211 - Pneumonia due to Methicillin susceptible Staphylococcus aureus Is this a current diagnosis for this admission?: YesPlan: Worse. MSSA by culture, discontinue Rocephin as it seems clear she is not going to resolve this pneumonia. Continue Supplement oxygen, nebulizer therapy for comfort. (2) Acute hypoxemic respiratory failure Is this a current diagnosis for this admission?: YesPlan: Worsening and now requiring supplemental O2, likely due to the development of pulmonary edema and worsening inflammatory changes bilateral. Her hemodynamic and her volume status is tenuous at best, she has little to no oral intake now that she obtunded again and as a result I elected to allow insensible losses returned her to euvolemic, rather than IV diuretics unless her condition worsens further. (3) Accelerated hypertension Is this a current diagnosis for this admission?: YesPlan: Fluctuating. Titrate regimen as tolerated and resume oral when able. (4) COPD with exacerbation Is this a current diagnosis for this admission?: YesPlan: Stable. Continue once daily systemic steroids, as an discontinue these given the length of time she's been on them and her relative hemolytic instability. (5) Atrial fibrillation Qualifiers: Atrial fibrillation type: unspecified Qualified Code(s): I48.91 - Unspecified atrial fibrillation Is this a current diagnosis for this admission?: YesPlan: New-onset, likely due to the stress from the above. Continue calcium channel rhonda and beta rhonda. No further investigation at this time as family wishes for less invasive approach. Some borderline tachycardia periodically, will titrate her regimen accordingly. (6) DNR (do not resuscitate) Is this a current diagnosis for this admission?: YesPlan: Reviewed and confirmed with family. I reached out to Dr. Cecilio Serna at , her PCP, but had to leave a message and have not heard back from anyone in their office. I had hoped he would provide some insight as to a facility closer to home where she can be transferred for end-of-life care, preferably one where he has privileges since he knows her so well. (7) Severe protein-calorie malnutrition Is this a current diagnosis for this admission?: YesPlan: Complicates her recovery, leaves her with little respiratory reserve. Advance her diet as tolerated, add oral nutritional supplement as tolerated. - Time Time Spent with patient: 35 or more minutes Medications reviewed and adjusted accordingly: Yes Anticipated discharge: Other - Skilled facility closer to home in [place] - Plan Summary Plan Summary: match up worker is reaching out to the facilities in the [place] area to see if they would be willing to accept the patient while we await to hear back from Dr. Serna. In the meantime will focus on her comfort.
[2016-07-27] MEDS: METOPROLOL TARTRATE PF/INJ 5 MG/5 ML SDV IV SCH ×4 (00:25→18:14)
[2016-07-27] MEDS: DILTIAZEM HCL INJ 25 MG/5 ML VIAL IV SCH ×4 (03:14→20:39)
[2016-07-27] MEDS: LANSOPRAZOLE 30 MG TAB.RAP.DR PO SCH (05:21)
[2016-07-27] MEDS: NITROGLYCERIN 10 MG (0.4 MG/HR) PATCH.TD24 TD SCH (10:55)
[2016-07-27] MEDS: METHYLPREDNISOLONE INJ 40 MG/1 ML SDV IV SCH (10:55)
[2016-07-27] MEDS: ASPIRIN 81 MG TABLET, CHEWABLE PO SCH (10:58)
[2016-07-27] MEDS: LISINOPRIL 10 MG TABLET PO SCH (10:58)
--- NOTE | 2016-07-27 11:01 | EKG REPORT ---
SEVERITY:- ABNORMAL ECG - SINUS TACHYCARDIA LEFT ANTERIOR FASCICULAR BLOCK ANTERIOR INFARCT, AGE INDETERMINATE PROLONGED QT INTERVAL ST-T WAVE CHANGES LAT CHEST LEADS, CONSIDER ISCHEMIA : Confirmed by: Julio Cesar Murphy 27-Jul-2016 11:01:12
--- NOTE | 2016-07-27 13:23 | PDOC TRANSFER SUMMARY ---
General - Admit/Disc Date/PCP Admission Date/Primary Care Provider: 07/16/16 15:30 MIRELLA WOO Discharge Date: 07/27/16 - Discharge Diagnosis (1) Pneumonia Is this a current diagnosis for this admission?: Yes (2) COPD with exacerbation Is this a current diagnosis for this admission?: Yes (3) Acute hypoxemic respiratory failure Is this a current diagnosis for this admission?: Yes (4) Coronary artery disease Is this a current diagnosis for this admission?: Yes (5) CKD (chronic kidney disease) Is this a current diagnosis for this admission?: Yes (6) Peripheral artery disease Is this a current diagnosis for this admission?: Yes (7) Congestive heart failure Is this a current diagnosis for this admission?: Yes (8) Cachexia Is this a current diagnosis for this admission?: Yes (9) Atrial fibrillation Is this a current diagnosis for this admission?: Yes (10) DNR (do not resuscitate) Is this a current diagnosis for this admission?: Yes (11) Comfort measures only status Is this a current diagnosis for this admission?: Yes (12) Acute encephalopathy Is this a current diagnosis for this admission?: Yes (13) Accelerated hypertension Is this a current diagnosis for this admission?: Yes (14) Severe protein-calorie malnutrition Is this a current diagnosis for this admission?: Yes - Additional Information Resuscitation Status: Do Not Resuscitate Discharge Diet: As Tolerated, Regular Discharge Activity: Activity As Tolerated Home Medications: Sennosides/Docusate 8.6-50 mg [Senna Plus Tablet] 1 tab PO DAILYP PRN 07/16/16 Tiotropium Br/Olodaterol HCl [Stiolto Respimat Inhal [place]] 1 puff IH QPM Acetaminophen [Tylenol 325 mg Tablet] 650 mg PO Q4HP PRN tablet 07/27/16 Bisacodyl [Dulcolax 10 mg Supp.rect] 10 mg MS DAILYP PRN supp.rect 07/27/16 Ipratropium/Albuterol Sulfate [Duoneb 3 ml Ampul] 3 ml NEB RTQ6HP PRN vial.neb 07/27/16 Lansoprazole [Prevacid 30 mg Odt Tablet] 30 mg PO Q6AM tab.rap.dr 07/27/16 Metoprolol Succinate [Toprol Xl 25 mg Tab.sr] 25 mg PO Q12 tab.sr.24h 07/27/16 Nitroglycerin [Nitro-Dur 10 mg (0.4MG/Hr) Transdermal Patch] 1 each TD DAILY patch.td24 07/27/16 History of Present Illness Admission Date/PCP: 07/16/16 15:30 [facility] Hospital Course: From H&P:VIKTORIA LEE is a 86 year old female who presents from her doctor's office at [facility] where she was had a follow-up appointment for her shortness of breath that she has been experiencing for the past 2 weeks. Patient denies it being worse, but states that it is very persistent. Patient states that she has a cough and is also congested. Patient's primary care provider became worried when her O2 saturation dropped as low as 75% while in the doctor's office. EMS states that on arrival they read her O2 saturation at 80%. Patient reports purulent sputum but denies hemoptysis. She denies fevers admits to occasional chills and feeling cold. She denies any peripheral edema worsening dyspnea on exertion, or PND or orthopnea. She is referred to the hospital service for COPD exacerbation/pneumonia. Patient's condition deteriorated rapidly and She became unresponsive. She would not follow commands and remained that way for 3 days according to the nursing staff. She was not this way on presentation. She also slipped into atrial fibrillation with a rapid ventricular response rate in the 160s sustained until IV Cardizem given. Patient's oral intake remains minimal and worsened due to onset of encephalopathy. I met with the sons at the bedside and after discussing her case they have decided not to continue pursuing invasive investigations or treatments. They wish to continue current level of care but if her condition were to deteriorate he wishes to focus only on her comfort and allow the condition harnessed medical course. They expressed concern regarding her nutritional status and have requested I add what I can to her IV fluids. They were counseled not to attempt to feed her until she is more alert and interactive. started her on IV fluids and added trace minerals and vitamins and improved somewhat on 07/23/2016 Her answers became appropriate, her requests sincere and she expressed gratitude for the care she has received. Since that time however she's had a more waxing and waning course. Apparently during the last couple nights she became very agitated and confused again requiring a small dose of Ativan to calm her. On the morning of 07/24/2016 she is once again obtunded responding only to noxious verbal or tactile stimuli and remains that way the morning of 07/25/2016. Her O2 requirements have increased to 6 L/m and an unfortunate consequence of the gentle IV fluids given includes the development of at least mild pulmonary edema contributing to her current situation. 07/26/2016 she is a bit more responsive but now complaining of generalized pain and I believe the signs of finally recognized that she likely is not going to improve from this situation and they have now requested transfer to a facility closer to home for end-of-life care. A long discussion with them regarding her treatment here we have elected to stop antibiotics, not provide any more fluids or artificial feedings or parenteral supplements and change the focus of our care to comfort measures. ROS: Unable to determine due to current mental state Physical Exam Vital Signs: Temp Pulse Resp BP Pulse Ox 97.4 F 46 L 16 126/42 H 100 07/27/16 11:31 07/27/16 11:31 07/27/16 11:31 07/27/16 11:31 07/27/16 11:31 Intake & Output 07/26/16 07/27/16 07/28/16 06:59 06:59 06:59 Intake Total 802 320 Balance 802 320 Weight 36.6 kg Exam: General: Cachectic, frail, elderly, lethargic, no acute respiratory distress HEENT: AT/NC, PERRL, oropharynx is moist, pink, no scleral icterus, no conjunctival injection Neck: No JVD, trachea midline Chest: Rhonchi bilaterally CV: Irregular rate and rhythm, normal S1 and S2, no rub or gallop Abdomen: Soft, nontender to palpation, nondistended, active bowel sounds; no rebound, rigidity, or guarding Extremities: No cyanosis, clubbing or edema Neuro: Lethargic, moves all extremities Results Laboratory Results: 07/25/16 15:01 07/25/16 15:01 Impressions: Chest X-Ray 07/25/16 09:03 IMPRESSION: Asymmetric edema or pneumonia on a background of COPD. Transfer Plan - Time Spent with Patient Time spent with patient: Greater than 30 Minutes Qualifiers PATEINT BEING DISCHARGED WITH ANY OF THE FOLLOWING DIAGNOSIS?: Heart Failure HF Pt being discharged on ACEI for LVEF less than 40%?: No Reason(s) for not prescribing ACEI:: Comfort Measure HF Pt being discharged on ARBS for LVEF less than 40%?: No Reason(s) for not prescribing ARBS:: Comfort Measure HF Pt with Afib discharged with Warfarin?: No Reason(s) for not prescribing Warfarin:: Comfort Measure HF Pt discharged on evidence-based Beta Mariam?: No Reason(s) for not prescribing evidence-based Beta Mariam:: Comfort Measure Plan Time Spent: Greater than 30 Minutes
[2016-07-27] MEDS ORDERED: METOPROLOL SUCCINATE 25 MG TAB.SR.24H PO ONE (13:30)
[2016-07-27 20:30] VITALS: BP 127/71
[2016-07-27] MEDS ORDERED: METOPROLOL SUCCINATE 25 MG TAB.SR.24H PO SCH (22:00)
== END 2016-07-27 21:30 | DRG 177 ==
LOC: ER 11:22 → UNDOADMIN 14:25 → EH 14:25 → 3W 16:30
PROVIDERS: ADMIT Family Medicine; ATTEND Family Medicine
PROC: 3E0F73Z Introduction of Anti-inflammatory into Respiratory Tract, Via Natural or Artificial Opening (ICD-10-PCS; principal; 2016-07-16)
DX: J15.211 Pneumonia due to Methicillin susceptible Staphylococcus aureus (principal); J96.01 Acute respiratory failure with hypoxia; E43 Unspecified severe protein-calorie malnutrition; J44.1 Chronic obstructive pulmonary disease with (acute) exacerbation; I16.1 Hypertensive emergency; I13.0 Hypertensive heart and chronic kidney disease with heart failure and stage 1 through stage 4 chronic kidney disease, or unspecified chronic kidney disease; N18.4 Chronic kidney disease, stage 4 (severe); R64 Cachexia; Z68.1 Body mass index [BMI] 19.9 or less, adult; Z66 Do not resuscitate; I25.10 Atherosclerotic heart disease of native coronary artery without angina pectoris; I73.9 Peripheral vascular disease, unspecified; I50.9 Heart failure, unspecified; M19.90 Unspecified osteoarthritis, unspecified site; I48.91 Unspecified atrial fibrillation; D64.9 Anemia, unspecified; I25.2 Old myocardial infarction; Z79.899 Other long term (current) drug therapy; Z90.49 Acquired absence of other specified parts of digestive tract; Z95.1 Presence of aortocoronary bypass graft; Z90.710 Acquired absence of both cervix and uterus; Z79.82 Long term (current) use of aspirin; Z88.0 Allergy status to penicillin; Z82.49 Family history of ischemic heart disease and other diseases of the circulatory system; Z84.1 Family history of disorders of kidney and ureter
CPT/HCPCS: 36415; 36600; 51701; 71010; 80048; 80053; 81001; 82550; 82553; 82607; 82728; 82746; 82803; 82962; 83540; 83550; 83735; 84100; 84466; 84484; 85025; 85045; 87040; 87070; 87077; 87186; 87205; 93005; 93010; 94640; 94667; 94668; 99285; G8978-GP; G8979-GP; J0360; J0692; J0696; J1956; J2270; J2920; J2930; J3411; J3475; J3490; J7030; J7512; J7620; S0164